=== PATIENT | female | born 1995 | race African-American/Black ===

== ENCOUNTER 2016-06-10 19:02 | Observation (INO) | payer OTHER ==
[2016-02-29 18:35] VITALS: BP 111/56
[~2016-06-10 19:02] MED LIST: HYDR-2666 PO; MEDR150D3 IM; METR500T PO
[2016-06-10] MEDS ORDERED: IV RINGERS,LACTATED 1000ML 1,000 ML IV SCH (19:36)
[2016-06-10 19:54] LABS: BILIRUBIN,URINE NEGATIVE (NEG); GLUCOSE,URINE NEGATIVE (NEG); NITRITE,URINE NEGATIVE (NEG); PH,URINE 6.5; PROTEIN,URINE >=300 mg/dL (NEG-TRACE)
[2016-06-10 20:03] LABS: BACTERIA,URINE FEW /HPF (0-FEW); RBC,URINE 0 /HPF (0-2); SQUAMOUS EPITHELIAL CELL,UR MANY /LPF
[2016-06-10 20:04] LABS: BARBITURATES NEG (NEG); BENZODIAZEPINES NEG (NEG); CANNABINOIDS POS (NEG); COCAINE NEG (NEG); METHADONE NEG (NEG); OPIATES NEG (NEG); PHENCYCLIDINE NEG (NEG)
[2016-06-10 20:05] LABS: ETHANOL, URINE NEG (NEG)
== END 2016-06-10 20:43 | disposition home or self-care (01) ==
LOC: 3 SO LND 19:02
PROVIDERS: ADMIT Specialist; ATTEND Specialist
DX: O26.893 Other specified pregnancy related conditions, third trimester (principal); R10.9 Unspecified abdominal pain; Y08.89XA Assault by other specified means, initial encounter; Y93.89 Activity, other specified; Y92.89 Other specified places as the place of occurrence of the external cause; Y99.8 Other external cause status; Z3A.21 21 weeks gestation of pregnancy
CPT/HCPCS: 81001; G0378; G0379; G0481

== ENCOUNTER 2016-06-10 20:41 | Emergency (ER) | payer OTHER ==
[2016-02-29 18:35] VITALS: BP 111/56
== END 2016-06-10 20:54 | disposition left against medical advice (07) ==
LOC: ER 20:41
DX: O26.892 Other specified pregnancy related conditions, second trimester (principal); M79.641 Pain in right hand; M54.5 Low back pain; Z3A.20 20 weeks gestation of pregnancy; Z53.21 Procedure and treatment not carried out due to patient leaving prior to being seen by health care provider

== ENCOUNTER 2016-10-05 21:34 | Observation (INO) | payer OTHER ==
[2016-02-29 18:35] VITALS: BP 111/56
[~2016-10-05 21:34] MED LIST changes: -HYDR-2666 PO; +HYDR-2758 PO
[2016-10-05] MEDS ORDERED: IV RINGERS,LACTATED 1000ML 1,000 ML IV SCH (21:36)
[2016-10-05 22:04] LABS: BILIRUBIN,URINE NEGATIVE (NEG); GLUCOSE,URINE NEGATIVE (NEG); NITRITE,URINE NEGATIVE (NEG); PROTEIN,URINE NEGATIVE (NEG-TRACE); UROBILINOGEN,URINE 0.2 mg/dL (0.2 mg/dL)
[2016-10-05 22:08] LABS: BARBITURATES NEG (NEG); BENZODIAZEPINES NEG (NEG); CANNABINOIDS POS (NEG); COCAINE NEG (NEG); METHADONE NEG (NEG); OPIATES NEG (NEG); PHENCYCLIDINE NEG (NEG)
[2016-10-05 22:43] LABS: RBC,URINE OCC /HPF (0-2)
[2016-10-05 22:44] LABS: BACTERIA,URINE FEW /HPF (0-FEW); SQUAMOUS EPITHELIAL CELL,UR FEW /LPF
== END 2016-10-05 23:04 | disposition home or self-care (01) ==
LOC: 3 SO LND 21:34
PROVIDERS: ADMIT Family Medicine; ATTEND Family Medicine
DX: O26.893 Other specified pregnancy related conditions, third trimester (principal); R10.30 Lower abdominal pain, unspecified; M54.9 Dorsalgia, unspecified; Z3A.37 37 weeks gestation of pregnancy
CPT/HCPCS: 81001; 87086; G0378; G0379; G0481

== ENCOUNTER 2016-10-13 19:47 | Inpatient (IN) | payer BC, OTHER ==
[~2016-10-13] VITALS: Ht 167.6 cm; Wt 73.0 kg
[2016-10-13] MEDS ORDERED: BUTORPHANOL 2 MG/ML VIAL. IV PRN (20:30)
[2016-10-13] MEDS ORDERED: fentaNYL PF VIAL 100 MCG/2 ML VIAL IV PRN (20:30)
[2016-10-13] MEDS ORDERED: TERBUTALINE 1 MG/ML VIAL. SQ PRN (20:30)
[2016-10-13] MEDS ORDERED: 0.9 % SODIUM CHLORIDE 10 ML DISP.SYRIN. IV PRN (20:30)
[2016-10-13] MEDS ORDERED: ONDANSETRON PF 4 MG/2 ML VIAL. IV PRN (20:30)
[2016-10-13] MEDS ORDERED: DINOPROSTONE 10 MG SUPP.VAG VG ONE (20:30)
[2016-10-13] MEDS ORDERED: CITRIC ACID/SODIUM CITRATE 30 ML SOLUTION. PO PRN (20:30)
[2016-10-13] MEDS ORDERED: OXYTOCIN 30 UNIT/500 ML PREMIX 500 ML IV PRN ×2 (20:30)
[2016-10-13] MEDS ORDERED: LIDOCAINE 1% PF 30 ML VIAL. INJ PRN (20:30)
[2016-10-13 20:47] LABS: HEMATOCRIT 28.6 % (36.0-47.0); HEMOGLOBIN 9.7 g/dL (12.0-15.5); RED BLOOD COUNT 3.29 x10^6/uL (3.50-5.40); RED CELL DISTRIBUTION WIDTH 12.8 % (11.5-14.5); WHITE BLOOD COUNT 4.5 x10^3/uL (4.0-11.0)
[2016-10-13] MEDS: IV RINGERS,LACTATED 1000ML 1,000 ML IV SCH (20:50)
[2016-10-13 20:54] LABS: BILIRUBIN,URINE NEGATIVE (NEG); GLUCOSE,URINE NEGATIVE (NEG); NITRITE,URINE NEGATIVE (NEG); PROTEIN,URINE 30 mg/dL (NEG-TRACE)
[2016-10-13 21:01] LABS: BARBITURATES NEG (NEG); BENZODIAZEPINES NEG (NEG); CANNABINOIDS POS (NEG); COCAINE NEG (NEG); METHADONE NEG (NEG); OPIATES NEG (NEG); PHENCYCLIDINE NEG (NEG)
[2016-10-13 21:03] LABS: RBC,URINE 0 /HPF (0-2)
[2016-10-13 21:04] LABS: BACTERIA,URINE FEW /HPF (0-FEW); SQUAMOUS EPITHELIAL CELL,UR FEW /LPF
[2016-10-14] MEDS ORDERED: ALPRAZolam 1 MG TABLET PO ONE (01:15)
[2016-10-14] MEDS: ACETAMINOPHEN 500 MG TABLET PO PRN ×3 (01:18→23:30)
[2016-10-14] MEDS: ZOLPIDEM 5 MG TABLET. PO PRN ×2 (01:18→23:30)
[2016-10-14] MEDS: IV RINGERS,LACTATED 1000ML 1,000 ML IV SCH (05:03)
[2016-10-14] MEDS ORDERED: ROPIVacaine 0.2% IN 0.9%NACL PF 40 MG/20 ML DISP.SYRIN. ONE ×2 (05:05→05:15)
[2016-10-14] MEDS ORDERED: L&D EPIDURAL CASSETTE 100 ML EP ONE (05:05)
[2016-10-14] MEDS ORDERED: OXYTOCIN in NORMAL SALINE PREMIX 30 UNIT/500 ML BAG. IV ONE (06:00)
[2016-10-14] MEDS ORDERED: fentaNYL PF VIAL 100 MCG/2 ML VIAL ONE (06:02)
[2016-10-14] MEDS ORDERED: L&D EPIDURAL CASSETTE 100 ML EP PRN (06:15)
[2016-10-14] MEDS ORDERED: NALOXONE 0.4 MG/ML VIAL. IV PRN (06:15)
[2016-10-14] MEDS ORDERED: ePHEDrine PF IN SALINE 50 MG/5 ML DISP.SYRIN IV PRN (06:15)
[2016-10-14] MEDS ORDERED: ROPIVacaine 0.2% PF 10 ML VIAL. EPI ONE (06:15)
[2016-10-14] MEDS ORDERED: ONDANSETRON PF 4 MG/2 ML VIAL. IV PRN (06:15)
[2016-10-14] MEDS ORDERED: fentaNYL PF VIAL 100 MCG/2 ML VIAL EPI ONE (06:15)
--- NOTE | 2016-10-14 07:12 | PDOC1 ---
OB - History Hx of Present Care: Good Care Ultrasounds: Abnormal US findings (IUGR suspected placental insufficiency) Obstetrical Complications: Growth Restriction Medical Complications: None Past Family/Social History * Past Medical, Surgical, Family and Obstetric Histories reviewed from chart. Blood Type: B+ Rubella: Immune RPR/VDRL: Negative GBS Status: Negative HBsAG: Negative OB - Chief Complaint & HPI Date of Admission: Date of Admission: Oct 13, 2016 at 19:47 Chief Complaint/History : 1 Para: 1 EDC: Oct 21, 2016 EGA: 39.1 Reason for admission: induction of labor Indication for induction: medical complication Admission Nurse Assessment Rev: No Problems: OB - Admission Exam Physical Exam Vitals: VS - Last 72 Hours, by Label Date Time Temp Pulse Resp B/P (MAP) Pulse Ox O2 Delivery O2 Flow Rate FiO2 10/14/16 06:09 22 Room Air HEENT: Normal Heart: Regular Rate Lungs: Clear Abdomen: Gravid Extremities: Normal Pulses, No tenderness or swelling Reflexes: Normal Cervical Dilatation: None Effacement: 0% Station: -2 Membranes: Intact Heart Rate: Normal Accelerations: Accelerations Present Decelerations: No decelerations Short Term Variability: Present [employer]ge Shop Supervisor Variability: Moderate Contractions on Admission: None A/P Pt is a 21yo [id number] at 39.0wga admitted for IOL 1)IOL- Cervadil 2)GBS negative 3)IUGR- 2/2 suspected placental insufficiency Problems: JEANETTE HALL MD Oct 14, 2016 07:12
--- NOTE | 2016-10-14 07:19 | PDOC ---
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
[2016-10-14] MEDS: IBUPROFEN 800 MG TABLET. PO PRN ×3 (09:54→23:30)
[2016-10-14 10:36] VITALS: BP 112/60
[2016-10-14 14:44] VITALS: BP 110/66
[2016-10-14 14:45] VITALS: BP 118/72
[2016-10-14] MEDS ORDERED: DIPHTH,PERTUSS(ACELL),TET TOX 0.5 ML DISP.SYRIN. VAX IM ONE (15:30)
[2016-10-14] MEDS ORDERED: BENZOCAINE 20% TOPICAL AEROSOL SPRAY 57GM CAN. TP PRN (17:00)
[2016-10-14 19:37] VITALS: BP 130/87
[2016-10-14 23:30] VITALS: BP 120/86
[2016-10-15 05:46] VITALS: BP 128/93
[2016-10-15 07:26] LABS: RPR REFLEX Non Reactive (Non Reactive)
--- NOTE | 2016-10-15 07:47 | PDOC ---
OB Progress Note Date of Service 10/15/16 Time of Evaluation 0730 Date: 10/14/16 Time: 0636 Notes Pt states that she is doing well. Bleeding is about the same as a period. She has tried but says infant has had some troubles latching on. OB VITAL SIGNS: Temperature (98.1), Blood Pressure (128/93), Pulse (75), O2 Sat (98% RA) Lab Laboratory Tests Test 10/13/16 20:00 10/13/16 20:20 Urine Collection Type Unknown Urine Color Yellow Urine Clarity Clear Urine pH 7.0 Urine Specific [place] 1.015 Urine Protein 30 mg/dL (NEG-TRACE) Urine Glucose (UA) Negative mg/dL (NEG) Urine Ketones (Stick) Negative mg/dL (NEG) Urine Blood Negative (NEG) Urine Nitrite Negative (NEG) Urine Bilirubin Negative (NEG) Urine Urobilinogen Dipstick 1.0 mg/dL (0.2 mg/dL) Urine Leukocyte Esterase Trace (NEG) Urine RBC 0 /HPF (0-2) Urine WBC 1-4 /HPF (0-4) Urine Squamous Epithelial Cells Few /LPF Urine Bacteria Few /HPF (0-FEW) Urine Mucus Mod /LPF Urine Opiates Screen Neg (NEG) Urine Methadone Screen Neg (NEG) Urine Barbiturates Neg (NEG) Urine Phencyclidine Screen Neg (NEG) Urine Amphetamine/Methamphetamine Neg (NEG) Urine Benzodiazepines Screen Neg (NEG) Urine Cocaine Screen Neg (NEG) Urine Cannabinoids Screen Pos (NEG) Urine Ethyl Alcohol Neg (NEG) White Blood Count 4.5 x10^3/uL (4.0-11.0) Red Blood Count 3.29 x10^6/uL (3.50-5.40) Hemoglobin 9.7 g/dL (12.0-15.5) Hematocrit 28.6 % (36.0-47.0) Mean Corpuscular Volume 87 fL (79-100) Mean Corpuscular Hemoglobin 30 pg (25-35) Mean Corpuscular Hemoglobin Concent 34 g/dL (31-37) Red Cell Distribution Width 12.8 % (11.5-14.5) Platelet Count 220 x10^3/uL (140-400) RPR Titer Additional Testing Non reactive (Non Reactive) Medications Current Medications Dinoprostone (Cervidil) 10 mg 1X ONCE VG Last administered on 7/30/17at 20:50 ; Start 10/13/16 at 20:30; Stop 10/14/16 at 15:23; Status DC Sodium Chloride (Normal Saline Flush) 3 ml QSHIFT PRN IV AFTER MEDS AND BLOOD DRAWS Last administered on 10/14/16 09:41; Start 10/13/16 at 20:30; Stop at 15:23; Status DC Ringer's Solution 1,000 ml @ 125 mls/hr Q8H IV Last administered on 10/14/16 05:03; Start 10/13/16 at 21:00; Stop 10/14/16 at 15:23; Status DC Butorphanol Tartrate (Stadol) 2 mg PRN Q1HR PRN IV Severe labor pain; Start at 20:30; Stop 10/14/16 at 15:23; Status DC Fentanyl Citrate (Fentanyl 2ml Vial) 100 mcg PRN Q20MIN PRN IV Labor pain; Start 10/13/16 at 20:30; Stop 10/14/16 at 15:23; Status DC Ondansetron HCl (Zofran) 4 mg PRN Q4HRS PRN IV NAUSEA/VOMITING Last administered on 10/14/16 02:19; Start 10/13/16 at 20:30; Stop 10/14/16 at 15:23 ; Status DC Citric Acid/ Sodium Citrate (Bicitra) 30 ml 1X PRN PRN PO DYSPEPSIA; Start at 20:30; Stop 10/14/16 at 15:23; Status DC Terbutaline Sulfate (Brethine) 0.25 mg 1X PRN PRN SQ SEE COMMENTS; Start at 20:30; Stop 10/14/16 at 15:23; Status DC Lidocaine HCl 30 ml 1X PRN PRN INJ SEE COMMENTS; Start 10/13/16 at 20:30; Stop 10/14/16 at 15:23; Status DC Oxytocin/Sodium Chloride 500 ml @ 0 mls/hr CONT PRN IV SEE I/O RECORD; Start at 20:30; Stop 10/14/16 at 15:23; Status DC Oxytocin/Sodium Chloride 500 ml @ 0 mls/hr CONT PRN PRN IV Post delivery bleeding; Start 10/13/16 at 20:30; Stop 10/14/16 at 15:23; Status DC Ibuprofen (Motrin) 800 mg PRN Q6HRS PRN PO PAIN Last administered on 10/14/16 23:30; Start 10/13/16 at 20:30 Alprazolam (Xanax) 1 mg 1X ONCE PO Last administered on 10/14/16 01:18; Start 10/14/16 at 01:15; Stop 10/14/16 at 15:23; Status DC Zolpidem Tartrate (Ambien) 5 mg PRN QHS PRN PO INSOMNIA, MAY REPEAT IN 1HR Last administered on 10/14/16 23:30; Start 10/14/16 at 00:30 Acetaminophen (Tylenol) 500 mg PRN Q6HRS PRN PO MILD PAIN / TEMP Last administered on 10/14/16 23:30; Start 10/14/16 at 00:30 Ropivacaine/ Fentanyl/NS 100 ml @ As Directed STK-MED ONCE EP ; Start 10/14/16 at 05:05; Stop 10/14/16 at 15:23; Status DC Ropivacaine 40 mg STK-MED ONCE .ROUTE ; Start 10/14/16 at 05:05; Stop 10/14/16 at 15:23; Status DC Fentanyl Citrate (Fentanyl 2ml Vial) 100 mcg STK-MED ONCE .ROUTE ; Start at 06:02; Stop 10/14/16 at 15:23; Status DC Ephedrine Sulfate 10 mg PRN Q2MIN PRN IV IF SBP<90; Start 10/14/16 at 06:15; Stop 10/14/16 at 15:23; Status DC Naloxone HCl (Narcan) 0.04 mg PRN Q1MIN PRN IV SEE COMMENTS; Start 10/14/16 at 06:15; Stop 10/14/16 at 15:23; Status DC Fentanyl Citrate (Fentanyl 2ml Vial) 100 mcg 1X ONCE EPI ; Start 10/14/16 at 06 :15; Stop 10/14/16 at 15:23; Status DC Ropivacaine/ Fentanyl/NS 100 ml @ 14 mls/hr CONT PRN EP PAIN Last administered on 10/14/16 06:09; Start 10/14/16 at 06:15; Stop 10/14/16 at 15:23 ; Status DC Ondansetron HCl (Zofran) 4 mg PRN Q6HRS PRN IV NAUSEA/VOMITING; Start 10/14/16 at 06:15; Stop 10/14/16 at 15:23; Status DC Ropivacaine (Naropin 0.2%) 20 ml 1X ONCE EPI ; Start 10/14/16 at 06:15; Stop at 15:23; Status DC Ropivacaine 40 mg STK-MED ONCE .ROUTE ; Start 10/14/16 at 05:15; Stop 10/14/16 at 15:23; Status DC Oxytocin/Sodium Chloride (Oxytocin Premix Infusion) 30 unit STK-MED ONCE IV ; Start 10/14/16 at 06:00; Stop 10/14/16 at 15:23; Status DC Diphtheria/ Tetanus/Acell Pertussis (Boostrix) 0.5 ml ONCE ONCE VAX IM ; Start 10/14/16 at 15:30; Stop 10/14/16 at 15:31; Status DC Benzocaine (Americaine) 1 spray PRN Q4HRS PRN TP PAIN Last administered on 10/14t 16:53; Start 10/14/16 at 17:00 Active Scripts Active Flagyl (Metronidazole) 500 Mg Tablet 1 Tab PO BID Hydrocodone-Apap 5-325 (Hydrocodone Bit/Acetaminophen) 1 Each Tablet 1 Tab PO PRN Q6HRS PRN Reported Depo-Provera (Medroxyprogesterone Acetate) 150 Mg/1 Ml Disp.syrin 1 Ml IM [id number] Exam GEN: NAD, AOx3 HEENT: MMM, EOMI, no scleral icterus/injection Cardiac: RRR, no M/R/G Lungs: CTAB Abd: soft, uterus is not firm Ext: no erythema/edema LE bilaterally Assessment Pt is a 21yo G1 now P1 s/p induced vaginal delivery s/p at 39.1wga 1)Induced vaginal delivery- 2/2 IUGR thought to be 2/2 placental insufficiency 2)GBS negative 3)/Bottlefeeding JEANETTE HALL MD Oct 15, 2016 07:47
[2016-10-15] MEDS: IBUPROFEN 800 MG TABLET. PO PRN ×2 (08:01→17:14)
[2016-10-15 11:05] VITALS: BP 126/91
[2016-10-15 17:15] VITALS: BP 131/89
[2016-10-15] MEDS: ACETAMINOPHEN 500 MG TABLET PO PRN (20:24)
[2016-10-15 20:57] VITALS: BP 121/82
[2016-10-16 05:24] VITALS: BP 115/68
[2016-10-16] MEDS: IBUPROFEN 800 MG TABLET. PO PRN (06:52)
[2016-10-16] MEDS ORDERED: IBUP800T19 PO (07:37)
--- NOTE | 2016-10-16 07:41 | PDOC3 ---
OB DISCHARGE SUMMARY DATE OF ADMISSION: 10/13/16 DATE OF DISCHARGE: 10/16/16 REASON FOR ADMISSION: Induction of labor PROCEDURES: Mgmt of OB Complications INTRAPARTUM PROCEDURES: Spontanous Vag Deliv DISCHARGE DIAGNOSIS: Term Delivered DISCHARGE INFORMATION: Activity (As tolerated), Diet (Regular), Medications ( Ibuprofen 800mg q6H prn), Instructions (Follow up with Dr. Hall in 4-6 weeks), Discharge to (Home) HOSPITAL COURSE Pt is a 21yo G1 now P1 s/p induced vaginal delivery s/p at 39.1wga 1)Induced vaginal delivery- 2/2 IUGR thought to be 2/2 placental insufficiency 2)GBS negative 3)/Bottlefeeding 4) control- pt is planning on starting the pill at her post visit JEANETTE HALL MD Oct 16, 2016 07:41
[2016-10-16 10:55] VITALS: BP 121/88
--- NOTE | 2016-10-17 15:34 | PATHOLOGY ---
PATHOLOGY REPORT * * * * * * * * FINAL DIAGNOSIS: 326 gram placenta of an estimated 39 weeks gestation with attached membranes and umbilical cord: - Small placenta. - Focal slight acute inflammation of umbilical cord vein. - Few subamniotic pigmented histiocytes consistent with meconium staining. - Peripheral retroplacental hematoma and placental infarct. COMMENT: There is no evidence of acute chorioamnionitis or villitis. (JPM:mgr; 10/16/2016) REPORT ELECTRONICALLY SIGNED BY: Moises De Santiago M.D. DATE/TIME: 10/17/2016 15:33 * * * * * * * * GROSS PATHOLOGY: Margins The specimen is received in formalin, labeled "Peoples", and consists of a placenta measuring 15 cm in diameter and 2.5 cm in thickness. The surface is bluegray with a paracentrally located umbilical cord measuring 34 cm in length which varies in diameter from 0.8-1.5 cm and has 3 vascular structures. Marginally inserted membranes are dull lauren-thorne. Following removal of umbilical cord and portion of the membranes the placenta weighs 326 g. Maternal surface appears intact and has a peripheral retroplacental hematoma measuring 2 1.5 0.6 cm which appears to compress the adjacent placental tissue. Section reveals red-brown placental tissue with a peripheral yellow-thorne area of old infarction underlying the retroplacental hematoma measuring 1.2 cm in greatest dimension and involving less than 5% of the placental volume. Some peripheral yellow-thorne fibrinous areas measuring up to about 2 cm and together involve less than 5% of the placental volume. Manager Servicing sections are submitted as follows: membranes and A1, 2 para central placental sections A2-A3, retroplacental hematoma and adjacent area of old infarction A4 and umbilical cord A5. (CW; 10/15/2016) INITIAL CPT CODE(S): A; 84485 Professional services performed by [facility] at [facility] [address] [place] [id number] Technical services performed by [facility] at [address] [place] [address], [address], [place] [address]. SPECIMEN(S) RECEIVED: A.Placenta CLINICAL HISTORY: IUGR, placental insufficiency, vaginal delivery, Gestational age 39 weeks, , EDC 10/16/16, 4lb 15oz female @ 0636 on 10/14/16, Apgars 8-8-9, heavy meconium PATIENT: CAMPBELL FIELDS /AGE: 12 1995 (Age: 21) PATIENT #: [id number] ALT CASE #: SPECIMEN COLLECTION DATE: 10/14/2016 SPECIMEN RECEIVED DATE: 10/14/2016 [facility] - [address] [place] [address] - PHONE: [phone] * * * END OF REPORT * * *
== END 2016-10-16 11:05 | disposition home or self-care (01) | DRG 775 ==
LOC: 3 SO LND 19:47 → 3 NORTH 10-14 09:45
PROVIDERS: ADMIT Family Medicine; ATTEND Family Medicine
PROC: 10E0XZZ Delivery of Products of Conception, External Approach (ICD-10-PCS; principal; 2016-10-14)
PROC: 0HQ9XZZ Repair Perineum Skin, External Approach (ICD-10-PCS; 2016-10-14)
PROC: 3E0S3BZ Introduction of Anesthetic Agent into Epidural Space, Percutaneous Approach (ICD-10-PCS; 2016-10-14)
PROC: 00HU33Z Insertion of Infusion Device into Spinal Canal, Percutaneous Approach (ICD-10-PCS; 2016-10-14)
DX: O77.0 Labor and delivery complicated by meconium in amniotic fluid (principal); Z37.0 Single live birth; Z3A.39 39 weeks gestation of pregnancy; O70.0 First degree perineal laceration during delivery; O36.5130 Maternal care for known or suspected placental insufficiency, third trimester, not applicable or unspecified; O36.5930 Maternal care for other known or suspected poor fetal growth, third trimester, not applicable or unspecified
CPT/HCPCS: 36415; 80307; 81001; 85027; 86593; 86850; 86900; 86901; 87086; 90715; C1887; J2405; J2590; J2795; J3010; J7120; G0479

== ENCOUNTER 2016-11-25 15:37 | Emergency (ER) | payer BC, OTHER ==
[~2016-11-25] VITALS: Ht 167.6 cm; Wt 69.4 kg
[~2016-11-25 15:37] MED LIST changes: +IBUP800T19 PO
[2016-11-25 15:50] VITALS: BP 128/81
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
[2016-11-25] MEDS ORDERED: TRAM-48 PO (16:23)
[2016-11-25] MEDS ORDERED: METH-37 PO (16:23)
[2016-11-25] MEDS ORDERED: METH4TAB2 PO (16:23)
== END 2016-11-25 16:30 | disposition home or self-care (01) ==
LOC: ER 15:37
DX: M54.5 Low back pain (principal); M54.6 Pain in thoracic spine; M54.2 Cervicalgia; M25.512 Pain in left shoulder; M25.511 Pain in right shoulder; V43.52XA Car driver injured in collision with other type car in traffic accident, initial encounter; Y93.I9 Activity, other involving external motion; Y92.410 Unspecified street and highway as the place of occurrence of the external cause; Y99.8 Other external cause status
CPT/HCPCS: 99283

== ENCOUNTER 2017-03-28 11:26 | Emergency (ER) | payer BC, OTHER ==
[2017-03-28 11:41] LABS: URINE HCG POC HCG POSITIVE (Negative)
[2017-03-28 11:50] LABS: BILIRUBIN,URINE NEGATIVE (NEG); CLARITY,URINE CLEAR; COLOR,URINE YELLOW; GLUCOSE,URINE NEGATIVE (NEG); NITRITE,URINE NEGATIVE (NEG); PH,URINE 7.5; PROTEIN,URINE NEGATIVE (NEG-TRACE); UROBILINOGEN,URINE 0.2 mg/dL (0.2 mg/dL)
[2017-03-28 12:04] LABS: SQUAMOUS EPITHELIAL CELL,UR FEW /LPF
[2017-03-28 12:05] LABS: BACTERIA,URINE 0 /HPF (0-FEW); RBC,URINE 0 /HPF (0-2)
[2017-03-28 12:24] LABS: ADD MAN DIFF? NO
[2017-03-28 12:29] LABS: BASO % 1 % (0-3); EOS % 1 % (0-3); HEMATOCRIT 34.2 % (36.0-47.0); HEMOGLOBIN 11.4 g/dL (12.0-15.5); LYMPH # 1.1 x10^3/uL (1.0-4.8); LYMPH % 35 % (24-48); MEAN CORPUSCULAR HEMOGLOBIN 29 pg (25-35); MEAN CORPUSCULAR HGB CONC 34 g/dL (31-37); MEAN CORPUSCULAR VOLUME 88 fL (79-100); MONO # 0.2 x10^3/uL (0.0-1.1); MONO % 6 % (0-9); NEUT # 1.8 x10^3uL (1.8-7.7); NEUT % 57 % (31-73); PLATELET COUNT 252 x10^3/uL (140-400); RED CELL DISTRIBUTION WIDTH 13.3 % (11.5-14.5); WHITE BLOOD COUNT 3.1 x10^3/uL (4.0-11.0)
[2017-03-28] MEDS: IV NORMAL SALINE 1000ML BAG 1,000 ML IV (12:35)
[2017-03-28 12:49] LABS: ANION GAP 11 (6-14); BLOOD UREA NITROGEN 8 mg/dL (7-20); BUN/CREATININE RATIO 11 (6-20); CALCIUM 8.9 mg/dL (8.5-10.1); CARBON DIOXIDE 25 mmol/L (21-32); CHLORIDE 103 mmol/L (98-107); CREATININE 0.7 mg/dL (0.6-1.0); GFR 126.6; GLUCOSE 93 mg/dL (70-99); POTASSIUM 3.3 mmol/L (3.5-5.1); SODIUM 139 mmol/L (136-145)
[2017-03-28 12:56] LABS: ALBUMIN 3.5 g/dL (3.4-5.0); ALBUMIN/GLOBULIN RATIO 0.7 (1.0-1.7); ALK PHOS 53 U/L (46-116); ALT (SGPT) 14 U/L (14-59); AST (SGOT) 17 U/L (15-37); MAGNESIUM 1.9 mg/dL (1.8-2.4); TOTAL BILIRUBIN 0.3 mg/dL (0.2-1.0); TOTAL PROTEIN 8.8 g/dL (6.4-8.2)
[2017-03-31 19:16] LABS: CHLAMYDIA PROBE Negative (Negative); GC PROBE Negative (Negative)
== END 2017-03-28 14:40 | disposition home or self-care (01) ==
LOC: ER 11:26
DX: O20.0 Threatened abortion (principal); Z3A.01 Less than 8 weeks gestation of pregnancy
CPT/HCPCS: 36415; 76801; 80053; 81001; 81025; 83735; 84702; 85025; 86850; 86900; 86901; 87491; 87591; 96360; 99285-25; J7030; Q0111

== ENCOUNTER → 2017-04-02 | Outpatient (CLI) | payer OTHER | END | disposition home or self-care (01) | LOC: KCIC US 10:57 | DX: O34.81 Maternal care for other abnormalities of pelvic organs, first trimester (principal); N83.11 Corpus luteum cyst of right ovary; Z3A.01 Less than 8 weeks gestation of pregnancy | CPT/HCPCS: 76801; 76817 ==

== ENCOUNTER → 2017-04-22 | Outpatient (CLI) | payer OTHER | END | disposition home or self-care (01) | LOC: KCIC US 10:09 | DX: O46.8X1 Other antepartum hemorrhage, first trimester (principal); N83.201 Unspecified ovarian cyst, right side; Z3A.10 10 weeks gestation of pregnancy | CPT/HCPCS: 76801; 76817 ==

== ENCOUNTER 2017-06-24 19:15 | Emergency (ER) | payer BC, OTHER ==
[2017-06-24 21:08] LABS: URINE HCG POC HCG POSITIVE (Negative)
[2017-06-24] MEDS: cefTRIAXone IV Push 1 GM VIAL. IVP (22:00)
[2017-06-24] MEDS: IV NORMAL SALINE 1000ML BAG 1,000 ML IV (22:20)
== END 2017-06-24 23:35 | disposition home or self-care (01) ==
LOC: ER 19:15
DX: O91.219 Nonpurulent mastitis associated with pregnancy, unspecified trimester (principal); Z3A.00 Weeks of gestation of pregnancy not specified
CPT/HCPCS: 81025; 96374; 99284-25; J0696; J7030

== ENCOUNTER → 2017-06-26 | Outpatient (CLI) | payer BC, OTHER | END | disposition home or self-care (01) | LOC: US 11:20 | DX: O26.892 Other specified pregnancy related conditions, second trimester (principal); N63.20 Unspecified lump in the left breast, unspecified quadrant; N64.4 Mastodynia; Z3A.20 20 weeks gestation of pregnancy | CPT/HCPCS: 76641 ==

== ENCOUNTER → 2017-06-30 | Outpatient (CLI) | payer BC, OTHER | END | disposition home or self-care (01) | LOC: US 13:33 | DX: N61.1 Abscess of the breast and nipple (principal) | CPT/HCPCS: 76942; 87071; 87075; 87205 ==

== ENCOUNTER → 2017-07-02 | Outpatient (CLI) | payer BC, OTHER | END | disposition home or self-care (01) | LOC: US 14:37 | DX: Z34.92 Encounter for supervision of normal pregnancy, unspecified, second trimester (principal); Z3A.20 20 weeks gestation of pregnancy | CPT/HCPCS: 76805 ==

== ENCOUNTER → 2017-07-25 | Outpatient (CLI) | payer BC, OTHER | END | disposition home or self-care (01) | LOC: NM 13:35 | DX: R07.89 Other chest pain (principal) | CPT/HCPCS: 71046; 78582; 96374; A9540; A9558 ==

== ENCOUNTER 2017-08-18 17:13 | Emergency (ER) | payer OTHER, BC ==
[2017-08-18 17:49] LABS: BILIRUBIN,URINE NEGATIVE (NEG); CLARITY,URINE CLEAR; COLOR,URINE YELLOW; GLUCOSE,URINE NEGATIVE (NEG); NITRITE,URINE NEGATIVE (NEG); PROTEIN,URINE NEGATIVE (NEG-TRACE)
[2017-08-18 18:02] LABS: BACTERIA,URINE 0 /HPF (0-FEW); RBC,URINE 0 /HPF (0-2); SQUAMOUS EPITHELIAL CELL,UR FEW /LPF; WBC,URINE OCC /HPF (0-4)
== END 2017-08-18 18:32 | disposition home or self-care (01) ==
LOC: ER 17:13
DX: O26.893 Other specified pregnancy related conditions, third trimester (principal); R10.9 Unspecified abdominal pain; Z3A.27 27 weeks gestation of pregnancy
CPT/HCPCS: 81001; 99283

== ENCOUNTER 2017-09-07 13:59 | Observation (INO) | payer OTHER ==
[2017-09-07 14:28] LABS: BILIRUBIN,URINE NEGATIVE (NEG); CLARITY,URINE CLEAR; COLOR,URINE YELLOW; GLUCOSE,URINE NEGATIVE (NEG); NITRITE,URINE NEGATIVE (NEG); PH,URINE 6.5; PROTEIN,URINE NEGATIVE (NEG-TRACE)
[2017-09-07 14:44] LABS: BACTERIA,URINE 0 /HPF (0-FEW); RBC,URINE 0 /HPF (0-2); WBC,URINE OCC /HPF (0-4)
[2017-09-07 14:45] LABS: SQUAMOUS EPITHELIAL CELL,UR FEW /LPF
[2017-09-07] MEDS: hydrOXYzine PAMOATE 25 MG CAPSULE PO (15:48)
[2017-09-07] MEDS: IV RINGERS,LACTATED 1000ML 1,000 ML IV (15:49)
== END 2017-09-07 17:35 | disposition home or self-care (01) ==
LOC: 3 SO LND 13:59
DX: O26.893 Other specified pregnancy related conditions, third trimester (principal); R10.30 Lower abdominal pain, unspecified; M54.9 Dorsalgia, unspecified; Z3A.30 30 weeks gestation of pregnancy
CPT/HCPCS: 81001; 87491; 87591; 96360; 96361; G0378; G0379; J7120; Q0177

== ENCOUNTER 2017-09-19 14:34 | Observation (INO) | payer BC, OTHER ==
[2017-09-19] MEDS ORDERED: IV RINGERS,LACTATED 1000ML 1,000 ML IV (15:39)
[2017-09-19 16:01] LABS: BILIRUBIN,URINE NEGATIVE (NEG); CLARITY,URINE CLEAR; COLOR,URINE YELLOW; GLUCOSE,URINE NEGATIVE (NEG); NITRITE,URINE NEGATIVE (NEG); PROTEIN,URINE NEGATIVE (NEG-TRACE)
== END 2017-09-19 17:09 | disposition home or self-care (01) ==
LOC: 3 SO LND 14:34
DX: O46.93 Antepartum hemorrhage, unspecified, third trimester (principal); Z3A.32 32 weeks gestation of pregnancy
CPT/HCPCS: 81003; G0378; G0379

== ENCOUNTER 2017-10-17 16:57 | Observation (INO) | payer BC, OTHER ==
[2017-10-17] MEDS ORDERED: IV RINGERS,LACTATED 1000ML 1,000 ML IV (17:19)
[2017-10-17 17:29] LABS: BILIRUBIN,URINE NEGATIVE (NEG); CLARITY,URINE CLOUDY; COLOR,URINE YELLOW; GLUCOSE,URINE NEGATIVE (NEG); NITRITE,URINE NEGATIVE (NEG); PH,URINE 6.5; PROTEIN,URINE 30 mg/dL (NEG-TRACE); UROBILINOGEN,URINE 0.2 mg/dL (0.2 mg/dL)
[2017-10-17] MEDS ORDERED: MAG HYDROX/ALUMINUM HYD/SIMETH 30 ML ORAL.SUSP PO (17:30)
[2017-10-17] MEDS ORDERED: ACETAMINOPHEN 325 MG TABLET. PO (17:30)
[2017-10-17] MEDS ORDERED: ONDANSETRON PF 4 MG/2 ML VIAL. IV (17:30)
[2017-10-17 17:33] LABS: BACTERIA,URINE 0 /HPF (0-FEW); RBC,URINE 0 /HPF (0-2); SQUAMOUS EPITHELIAL CELL,UR FEW /LPF; WBC,URINE OCC /HPF (0-4)
[2017-10-17 18:16] LABS: ADD MAN DIFF? NO
[2017-10-17 18:20] LABS: BASO % 0 % (0-3); EOS % 1 % (0-3); HEMATOCRIT 30.1 % (36.0-47.0); HEMOGLOBIN 10.3 g/dL (12.0-15.5); LYMPH # 1.3 x10^3/uL (1.0-4.8); LYMPH % 26 % (24-48); MEAN CORPUSCULAR HEMOGLOBIN 29 pg (25-35); MEAN CORPUSCULAR HGB CONC 34 g/dL (31-37); MEAN CORPUSCULAR VOLUME 86 fL (79-100); MONO # 0.5 x10^3/uL (0.0-1.1); MONO % 10 % (0-9); NEUT # 3.2 x10^3uL (1.8-7.7); NEUT % 63 % (31-73); PLATELET COUNT 214 x10^3/uL (140-400); RED BLOOD COUNT 3.51 x10^6/uL (3.50-5.40); RED CELL DISTRIBUTION WIDTH 13.8 % (11.5-14.5)
[2017-10-17 18:29] LABS: ANION GAP 7 (6-14); BLOOD UREA NITROGEN 10 mg/dL (7-20); BUN/CREATININE RATIO 11 (6-20); CALCIUM 8.2 mg/dL (8.5-10.1); CARBON DIOXIDE 26 mmol/L (21-32); CHLORIDE 104 mmol/L (98-107); CREATININE 0.9 mg/dL (0.6-1.0); GFR 94.7; GLUCOSE 85 mg/dL (70-99); POTASSIUM 3.3 mmol/L (3.5-5.1); SODIUM 137 mmol/L (136-145)
[2017-10-17 18:35] LABS: ALBUMIN 2.4 g/dL (3.4-5.0); ALBUMIN/GLOBULIN RATIO 0.5 (1.0-1.7); ALK PHOS 167 U/L (46-116); ALT (SGPT) 13 U/L (14-59); AST (SGOT) 16 U/L (15-37); TOTAL BILIRUBIN 0.2 mg/dL (0.2-1.0); TOTAL PROTEIN 7.4 g/dL (6.4-8.2); URIC ACID 5.3 mg/dL (2.6-6.0)
[2017-10-20 16:17] LABS: TOTAL PROTEIN CREATININE RATIO 238 mg/g creat (0-200); UR CREATININE RD 342.3 mg/dL (Not Estab.); UR PROTEIN RD 81.4 mg/dL (Not Estab.)
== END 2017-10-17 20:06 | disposition home or self-care (01) ==
LOC: 3 SO LND 16:57
DX: O26.893 Other specified pregnancy related conditions, third trimester (principal); R10.9 Unspecified abdominal pain; R10.2 Pelvic and perineal pain; Z3A.36 36 weeks gestation of pregnancy
CPT/HCPCS: 36415; 80053; 81001; 82570; 84156; 84550; 85025; G0378; G0379

== ENCOUNTER 2017-10-23 01:36 | Inpatient (IN) | payer BC, OTHER ==
[2017-10-23 02:00] LABS: BILIRUBIN,URINE NEGATIVE (NEG); CLARITY,URINE CLEAR; COLOR,URINE YELLOW; GLUCOSE,URINE NEGATIVE (NEG); NITRITE,URINE NEGATIVE (NEG); PROTEIN,URINE 30 mg/dL (NEG-TRACE); UROBILINOGEN,URINE 0.2 mg/dL (0.2 mg/dL)
[2017-10-23 02:35] LABS: AMORPHOUS SEDIMENT,UR PRESENT /HPF; BACTERIA,URINE FEW /HPF (0-FEW); RBC,URINE RARE /HPF (0-2); SQUAMOUS EPITHELIAL CELL,UR MANY /LPF
[2017-10-23] MEDS: ACETAMINOPHEN 500 MG TABLET PO ×2 (03:11→04:29)
[2017-10-23 03:50] LABS: ALBUMIN 2.2 g/dL (3.4-5.0); ALBUMIN/GLOBULIN RATIO 0.4 (1.0-1.7); ALK PHOS 169 U/L (46-116); ALT (SGPT) 13 U/L (14-59); ANION GAP 7 (6-14); AST (SGOT) 17 U/L (15-37); BLOOD UREA NITROGEN 10 mg/dL (7-20); BUN/CREATININE RATIO 13 (6-20); CALCIUM 8.4 mg/dL (8.5-10.1); CARBON DIOXIDE 25 mmol/L (21-32); CHLORIDE 104 mmol/L (98-107); CREATININE 0.8 mg/dL (0.6-1.0); GFR 108.5; GLUCOSE 86 mg/dL (70-99); POTASSIUM 3.2 mmol/L (3.5-5.1); SODIUM 136 mmol/L (136-145); TOTAL BILIRUBIN 0.1 mg/dL (0.2-1.0); TOTAL PROTEIN 7.5 g/dL (6.4-8.2); URIC ACID 4.5 mg/dL (2.6-6.0)
[2017-10-23] MEDS: IV RINGERS,LACTATED 1000ML 1,000 ML IV ×2 (08:31→22:00)
[2017-10-23] MEDS: LABETALOL 20 MG/4 ML DISP.SYRIN. IVP ×3 (08:35→09:28)
[2017-10-23] MEDS ORDERED: 0.9 % SODIUM CHLORIDE 10 ML DISP.SYRIN. IV (09:15)
[2017-10-23] MEDS ORDERED: OXYTOCIN 30 UNIT/500 ML PREMIX 500 ML IV ×2 (09:15)
[2017-10-23] MEDS ORDERED: LIDOCAINE 1% PF 30 ML VIAL. INJ (09:15)
[2017-10-23] MEDS ORDERED: MAG HYDROX/ALUMINUM HYD/SIMETH 30 ML ORAL.SUSP PO (09:15)
[2017-10-23] MEDS ORDERED: CITRIC ACID/SODIUM CITRATE 30 ML SOLUTION. PO (09:15)
[2017-10-23] MEDS ORDERED: TERBUTALINE 1 MG/ML VIAL. SQ (09:15)
[2017-10-23] MEDS ORDERED: hydrALAZINE 20 MG/ML VIAL. IVP (09:45)
[2017-10-23] MEDS: MAGNESIUM SULFATE 4GM 100 ML IV (10:06)
[2017-10-23 10:18] LABS: ADD MAN DIFF? NO
[2017-10-23 10:26] LABS: BASO % 0 % (0-3); EOS % 1 % (0-3); HEMATOCRIT 31.2 % (36.0-47.0); HEMOGLOBIN 10.6 g/dL (12.0-15.5); LYMPH # 1.4 x10^3/uL (1.0-4.8); LYMPH % 29 % (24-48); MEAN CORPUSCULAR HEMOGLOBIN 29 pg (25-35); MEAN CORPUSCULAR HGB CONC 34 g/dL (31-37); MEAN CORPUSCULAR VOLUME 86 fL (79-100); MONO # 0.4 x10^3/uL (0.0-1.1); MONO % 9 % (0-9); NEUT # 2.9 x10^3uL (1.8-7.7); NEUT % 61 % (31-73); PLATELET COUNT 194 x10^3/uL (140-400); RED BLOOD COUNT 3.61 x10^6/uL (3.50-5.40); WHITE BLOOD COUNT 4.7 x10^3/uL (4.0-11.0)
[2017-10-23] MEDS ORDERED: MAGNESIUM SULFATE 2GM 50 ML IV (10:30)
[2017-10-23] MEDS: MAGNESIUM SULFATE 20GM 500 ML IV ×2 (10:31→21:47)
[2017-10-23] MEDS: fentaNYL PF VIAL 100 MCG/2 ML VIAL IV (12:11)
[2017-10-23] MEDS: AMPICILLIN SODIUM 2 GM in IV NORMAL SALINE 100ML 100 ML IV ×2 (12:58→16:11)
[2017-10-23] MEDS: BUTORPHANOL 2 MG/ML VIAL. IV (13:28)
[2017-10-23] MEDS ORDERED: IV RINGERS,LACTATED 1000ML 1,000 ML IV (13:29)
[2017-10-23] MEDS ORDERED: BUPIVACAINE MPF 0.25% 10 ML VIAL. EPI (13:30)
[2017-10-23] MEDS ORDERED: NALOXONE 0.4 MG/ML VIAL. IV (13:30)
[2017-10-23] MEDS ORDERED: fentaNYL PF VIAL 100 MCG/2 ML VIAL EPI (13:30)
[2017-10-23] MEDS: ROPIVacaine 0.2% IN 0.9%NACL PF 40 MG/20 ML DISP.SYRIN. EPI (13:54)
[2017-10-23] MEDS: L&D EPIDURAL SYRINGE 50 ML EP (13:56)
[2017-10-23] MEDS ORDERED: HEPATITIS B VAX PF for NSY/VFC 10 MCG/0.5 ML SYRINGE. VAX IM (17:15)
[2017-10-23] MEDS ORDERED: PHYTONADIONE NEONATAL 1 MG/0.5 ML SYRINGE. IM (17:15)
[2017-10-23] MEDS ORDERED: ERYTHROMYCIN 0.5% OPHTH OINTMENT 1GM TUBE. OU (17:15)
[2017-10-23] MEDS: IBUPROFEN 800 MG TABLET. PO (18:20)
[2017-10-23] MEDS: oxyCODONE/APAP 5/325 1 TAB TABLET PO (18:20)
[2017-10-23] MEDS: ONDANSETRON PF 4 MG/2 ML VIAL. IV (21:24)
[2017-10-23] MEDS: ZOLPIDEM 5 MG TABLET. PO (23:46)
[2017-10-24 03:49] LABS: ADD MAN DIFF? NO
[2017-10-24 03:53] LABS: BASO % 0 % (0-3); EOS # 0.1 x10^3/uL (0.0-0.7); EOS % 1 % (0-3); HEMATOCRIT 29.2 % (36.0-47.0); HEMOGLOBIN 9.9 g/dL (12.0-15.5); LYMPH # 1.1 x10^3/uL (1.0-4.8); LYMPH % 15 % (24-48); MEAN CORPUSCULAR HEMOGLOBIN 30 pg (25-35); MEAN CORPUSCULAR HGB CONC 34 g/dL (31-37); MEAN CORPUSCULAR VOLUME 87 fL (79-100); MONO # 0.4 x10^3/uL (0.0-1.1); MONO % 6 % (0-9); NEUT # 5.7 x10^3uL (1.8-7.7); NEUT % 78 % (31-73); PLATELET COUNT 158 x10^3/uL (140-400); RED BLOOD COUNT 3.35 x10^6/uL (3.50-5.40); RED CELL DISTRIBUTION WIDTH 13.7 % (11.5-14.5); WHITE BLOOD COUNT 7.4 x10^3/uL (4.0-11.0)
[2017-10-24 04:06] LABS: MAGNESIUM 6.2 mg/dL (1.8-2.4)
[2017-10-24 04:16] LABS: ALBUMIN 2.1 g/dL (3.4-5.0); ALBUMIN/GLOBULIN RATIO 0.4 (1.0-1.7); ALK PHOS 154 U/L (46-116); ALT (SGPT) 12 U/L (14-59); ANION GAP 8 (6-14); AST (SGOT) 16 U/L (15-37); BLOOD UREA NITROGEN 6 mg/dL (7-20); BUN/CREATININE RATIO 9 (6-20); CARBON DIOXIDE 27 mmol/L (21-32); CHLORIDE 104 mmol/L (98-107); CREATININE 0.7 mg/dL (0.6-1.0); GFR 126.6; GLUCOSE 80 mg/dL (70-99); POTASSIUM 3.2 mmol/L (3.5-5.1); SODIUM 139 mmol/L (136-145); TOTAL BILIRUBIN 0.1 mg/dL (0.2-1.0); TOTAL PROTEIN 6.8 g/dL (6.4-8.2)
[2017-10-24] MEDS: oxyCODONE/APAP 5/325 1 TAB TABLET PO ×2 (06:22→12:17)
[2017-10-24] MEDS: ACETAMINOPHEN 325 MG TABLET. PO (06:22)
[2017-10-24] MEDS: IBUPROFEN 800 MG TABLET. PO ×2 (08:19→17:34)
[2017-10-24] MEDS: LABETALOL 20 MG/4 ML DISP.SYRIN. IVP (08:54)
[2017-10-24] MEDS: MAGNESIUM SULFATE 20GM 500 ML IV (08:55)
[2017-10-24] MEDS: POTASSIUM CHLORIDE 20 MEQ TABLET.ER. PO ×2 (17:15→17:35)
[2017-10-24] MEDS: ZOLPIDEM 5 MG TABLET. PO (22:00)
[2017-10-25] MEDS: IBUPROFEN 800 MG TABLET. PO ×3 (06:22→22:15)
[2017-10-25] MEDS: oxyCODONE/APAP 5/325 1 TAB TABLET PO ×2 (06:22→22:15)
[2017-10-25 07:33] LABS: STREP B BY PCR SEE SEPARATE REPORT
[2017-10-25] MEDS: LABETALOL HCL 100 MG TABLET. PO ×2 (12:30→22:15)
[2017-10-25] MEDS: MAGNESIUM HYDROXIDE 2,400 MG/30 ML ORAL.SUSP. PO (22:28)
[2017-10-26] MEDS: LABETALOL HCL 100 MG TABLET. PO (08:08)
== END 2017-10-26 17:11 | disposition home or self-care (01) | DRG 774 ==
LOC: 3 SO LND 01:36 → 3 NORTH 22:00
PROC: 10E0XZZ Delivery of Products of Conception, External Approach (ICD-10-PCS; principal; 2017-10-23)
PROC: 00HU33Z Insertion of Infusion Device into Spinal Canal, Percutaneous Approach (ICD-10-PCS; 2017-10-23)
PROC: 3E0R3BZ Introduction of Anesthetic Agent into Spinal Canal, Percutaneous Approach (ICD-10-PCS; 2017-10-23)
DX: O14.93 Unspecified pre-eclampsia, third trimester (principal); O69.81X0 Labor and delivery complicated by cord around neck, without compression, not applicable or unspecified; Z37.0 Single live birth; Z3A.36 36 weeks gestation of pregnancy
CPT/HCPCS: 36415; 80053; 81001; 83735; 84550; 85025; 86592; 86850; 86900; 86901; 87653; G0378; G0379; J0290; J2405; J2795; J3010; J3475; J3490; J7120

== ENCOUNTER → 2018-01-09 | Outpatient (CLI) | payer BC, OTHER ==
[2017-10-26 16:20] VITALS: BP 139/99
[~2018-01-09] MED LIST changes: +CEPH-264 PO; +METH-37 PO; +METH4TAB2 PO; +TRAM-48 PO
--- NOTE | 2018-01-09 16:16 | RAD ---
MRI of the brain without contrast 01/09/2018 Clinical History: Constant migraine headaches for 3 months. Visual changes. Technique: Unenhanced T1-weighted sagittal and axial, T2-weighted axial and coronal and FLAIR, gradient echo and diffusion-weighted axial images of the brain were obtained. Findings: No previous studies are available for comparison. The ventricles and sulci are within normal limits in size and configuration. No area of significant abnormal signal intensity is seen involving brain parenchyma. No extra-axial fluid collection is seen. There is no MRI evidence of acute ischemia/infarction. The paranasal sinuses are essentially clear. Normal flow voids are seen within the major vascular structures surrounding the brain parenchyma. Impression: Negative study. Electronically signed by: Vinayak Wen MD (01/09/2018 4:13 PM) [id number]
== END | disposition home or self-care (01) ==
LOC: MRI 14:54
PROVIDERS: ATTEND Family Medicine
DX: G43.909 Migraine, unspecified, not intractable, without status migrainosus (principal)
CPT/HCPCS: 70551

== ENCOUNTER 2018-02-10 13:05 | Emergency (ER) | payer BC, OTHER ==
[~2018-02-10] VITALS: Ht 167.6 cm; Wt 74.8 kg
[~2018-02-10 13:05] MED LIST changes: -HYDR-2758 PO; +HYDR-2761 PO
[2018-02-10 13:54] LABS: BASO % 1 % (0-3); EOS # 0.1 x10^3/uL (0.0-0.7); EOS % 2 % (0-3); HEMATOCRIT 35.1 % (36.0-47.0); HEMOGLOBIN 12.1 g/dL (12.0-15.5); LYMPH # 1.2 x10^3/uL (1.0-4.8); LYMPH % 31 % (24-48); MEAN CORPUSCULAR HEMOGLOBIN 29 pg (25-35); MEAN CORPUSCULAR HGB CONC 34 g/dL (31-37); MEAN CORPUSCULAR VOLUME 84 fL (79-100); MONO # 0.2 x10^3/uL (0.0-1.1); MONO % 6 % (0-9); NEUT # 2.3 x10^3uL (1.8-7.7); NEUT % 60 % (31-73); PLATELET COUNT 252 x10^3/uL (140-400); RED BLOOD COUNT 4.18 x10^6/uL (3.50-5.40); RED CELL DISTRIBUTION WIDTH 13.5 % (11.5-14.5); WHITE BLOOD COUNT 3.9 x10^3/uL (4.0-11.0)
--- NOTE | 2018-02-10 13:57 | RAD ---
CHEST PA LATERAL History: LEFT SIDED CHEST PAIN Comparison: Two-view chest, July 25, 2017. Findings: The cardiomediastinal silhouette is normal. Pulmonary vasculature is normal. The lungs are clear. No pleural effusion or pneumothorax is seen. There is no acute bone abnormality. IMPRESSION: No acute cardiopulmonary process. Electronically signed by: Jerome Grimaldo MD (02/10/2018 1:53 PM) [id number]
--- NOTE | 2018-02-10 14:05 | EKG ---
[facility] [address] [place] [address] Test Date: 2018-02-10 Test Time: 13:17:04 Pat Name: CAMPBELL FIELDS Department: Room: Gender: F [employer] Registrar: : 1995 Requested By: SHERI HERNÁNDEZ Order Number: [id number] Reading MD: Jean Paul Wise Measurements Intervals [place] Rate: 90 P: 0 [place]: 152 QRS: 31 QRSD: 76 T: -20 QT: 340 QTc: 420 Interpretive Statements SINUS RHYTHM MILD T ABNORMALITY IN ANTERIOR LEADS Electronically Signed On 02-11-2018 9:43:31 TECHNOLOGY ASSISTANT by Jean Paul Wise
[2018-02-10 14:21] LABS: CALCIUM 8.7 mg/dL (8.5-10.1); CREATININE 0.9 mg/dL (0.6-1.0); GFR 94.7; POTASSIUM 3.5 mmol/L (3.5-5.1)
[2018-02-10 14:27] LABS: ALBUMIN 3.6 g/dL (3.4-5.0); ALBUMIN/GLOBULIN RATIO 0.6 (1.0-1.7); C-REACTIVE PROTEIN 1.1 mg/L (0-3.3); TOTAL BILIRUBIN 0.2 mg/dL (0.2-1.0); TOTAL PROTEIN 9.2 g/dL (6.4-8.2)
[2018-02-10 14:30] VITALS: BP 121/86
== END 2018-02-10 15:15 | disposition home or self-care (01) ==
LOC: ER 13:05
DX: R07.89 Other chest pain (principal)
CPT/HCPCS: 36415; 71046; 80053; 81025; 82553; 83880; 84484; 85025; 85379; 86140; 93005; 99284

== ENCOUNTER → 2018-02-18 | Outpatient (CLI) | payer BC, OTHER ==
[2018-02-10 14:30] VITALS: BP 121/86
--- NOTE | 2018-02-18 15:31 | RAD ---
DATE: 02/18/2018 EXAM: DIGITAL DIAGNOSTIC BILATERAL, BREAST LEFT HISTORY: Left breast lump and swelling for one week, possible abscess COMPARISON: None available This study was interpreted with the benefit of Computerized Aided Detection (CAD). Breast Density: HETERO The breast parenchyma is heterogenously dense, which could reduce sensitivity of mammography. Breast parenchyma level C. FINDINGS: There is considerable skin thickening in the anterior aspect of the left breast in the areolar region. The underlying fibroglandular tissues are more dense on the left than the right. No discrete mass is seen. No suspicious microcalcifications are evident. Left breast ultrasound, 02/18/2018: There is a superficial heterogeneous, predominantly hypoechoic process present in the retroareolar region centered just lateral to the midline. There is overlying skin thickening. The margins of this process are irregular. There is considerable intraluminal vascularity. This is not a simple fluid collection. It is discoid in shape measuring 4.9 x 1.7 x 4.5 cm. A similar process was present in this region on the 06/26/2017 exam. The process was aspirated at that time with only small amount of pus like material aspirated. IMPRESSION: Ongoing or recurrent complicated mass with internal vascularity in the left retroareolar region centered just lateral to the midline. This may represent granulation tissue due to chronic infection, although malignancy cannot be excluded. Correlation with lab results from the previous aspiration of 06/26/2017 if available would be helpful. Ultrasound-guided biopsy should be considered for further evaluation. Note: The findings were discussed with the patient at time of the exam and she understands our recommendation for biopsy. She will follow up with the ordering provider. BI-RADS CATEGORY: 4 SUSPICIOUS ABNORMALITY- BIOPSY SHOULD BE CONSIDERED RECOMMENDED FOLLOW-UP: BIO BIOPSY RECOMMENDED PQRS compliance statement: Patient information was entered into a reminder system with a target due date for the next mammogram. Mammography is a sensitive method for finding small breast cancers, but it does not detect them all and is not a substitute for careful clinical examination. A negative mammogram does not negate a clinically suspicious finding and should not result in delay in biopsying a clinically suspicious abnormality. "Our facility is accredited by the [employer] Mammography Program."
== END | disposition home or self-care (01) ==
LOC: US 13:43
PROVIDERS: ATTEND Family Medicine
DX: N61.1 Abscess of the breast and nipple (principal)
CPT/HCPCS: 76641; 77066

== ENCOUNTER → 2018-03-24 | Outpatient (CLI) | payer OTHER, BC ==
--- NOTE | 2018-03-26 09:13 | PATHOLOGY ---
[facility] Accession Number: [id number] . 01 Material submitted: . LEFT BREAST MASS . 01 Clinical history: . Left breast mass . 02 Diagnosis: Skin and breast tissue, left breast mass needle biopsy: - Chronic mastitis with focal mild duct ectasia. (JPM:brea; 03/25/2018) MBR/03/25/2018 . 02 Comment: There is no evidence of malignancy. (JPM:brea; 03/25/2018) . 02 Electronically signed: . Moises De Santiago MD, Pathologist NPI- [id number] . 01 Gross description: . Received in formalin labeled "Colleen Duke, left breast mass," are multiple needle cores of yellow-lauren fibrofatty tissue measuring 2.1 x 0.7 x 0.2 cm in aggregate dimensions. The tissue submitted in its entirety in cassette A1 through A3. The cold ischemic time is 7 minutes. The total formalin fixation time is 14 hours and 20 minutes. (TSD; 03/24/2018) TOB/TOB . 02 Pathologist provided ICD-10: N60.12, N60.42 . 02 CPT . 321396 Specimen Comment: A courtesy copy of this report has been sent to Specimen Comment: [phone], , . Specimen Comment: Report sent to , DR HASTINGS / DR HALL Specimen Comment: A duplicate report has been generated due to demographic updates. Performed at: 01 [facility] [address], [place], [place] [id number] MD Ruben Guzmán MD Phone: [phone] Performed at: 02 [facility] [address] [place], [place] [address] MD Moises De Santiago MD Phone: [phone]
--- NOTE | 2018-03-26 14:52 | RAD ---
Ultrasound-guided left breast biopsy, 03/24/2018: History: Retroareolar mass A previous ultrasound exam demonstrated an irregular retroareolar mass. Under local anesthesia, aseptic conditions and sonographic guidance 4 separate 14-gauge core samples were obtained from different portions of this process. A biopsy marker was then deposited the biopsy site. Hemostasis was then obtained. Two-view postprocedural digital mammograms were then obtained to document position of the biopsy marker. These mammogram show that the overall retroareolar density appears to have regressed slightly since 02/18/2018. Mildly prominent left axillary lymph nodes are noted on the current images, the largest of which measures 2 cm. The patient tolerated the procedure well and left the department in good condition. The subsequent pathology report indicated the presence of chronic mastitis. This is considered to be concordant finding.
== END | disposition home or self-care (01) ==
LOC: US 08:22
PROVIDERS: ATTEND Surgery
DX: N60.12 Diffuse cystic mastopathy of left breast (principal); N60.42 Mammary duct ectasia of left breast
CPT/HCPCS: 19083; 77065; 88305; C1713; 19081; 76942

== ENCOUNTER 2019-04-28 18:31 | Emergency (ER) | payer BC, OTHER ==
[~2019-04-28] VITALS: Ht 165.1 cm; Wt 70.9 kg
[2019-04-28 19:35] VITALS: BP 146/90
[2019-04-28] MEDS ORDERED: PENI500T PO (20:59)
[2019-04-28] MEDS ORDERED: CHLO15MO2 SWSP (20:59)
[2019-04-28] MEDS ORDERED: NAPR-514 PO (20:59)
[2019-04-28] MEDS: HYDROcodone/APAP 5/325MG 1 TAB TABLET PO ONE (21:00)
--- NOTE | 2019-04-28 21:00 | PHYS DOC ---
Past Medical History Past Medical History: No Pertinent History, Hypertension Past Surgical History: Other Additional Past Surgical Histo: L breast biopsy Smoking Status: Never Smoker Alcohol Use: None Drug Use: None Adult General Chief Complaint Chief Complaint: DENTAL PROBLEM HPI HPI Patient is a 24 year old AA female who presents to the emergency department with complaints of left upper quadrant dental pain in gingival swelling that began today. Patient states that she noticed that her left cheek was also swollen this afternoon. She denies any fever, cough, nasal congestion, body aches, fatigue, nausea, vomiting, diarrhea, or abdominal pain. She currently rates her pain a 10 out of 10 on the pain scale, she denies any history of trauma to the affected area. Patient denies any alleviating factors. Review of Systems Review of Systems All other ROS is negative unless otherwise noted in HPI. Allergies Allergies Allergies Coded Allergies Type Severity Reaction Last Updated Verified No Known Drug Allergies 08/18/17 No Physical Exam Physical Exam See Above Constitutional: Well developed, well nourished, no acute distress, non-toxic appearance. [] HENT: Normocephalic, atraumatic, bilateral external ears normal, oropharynx moist, no oral exudates, nose normal; gingival edema and erythema noted lateral to tooth #13, no visible abscess, consistent with gingivitis tooth #13 tender to palpation [] Eyes: PERRLA, EOMI, conjunctiva normal, no discharge. [] Neck: Normal range of motion, no tenderness, supple, no stridor. [] Cardiovascular:Heart rate regular rhythm Lungs & Thorax: Respirations even and unlabored, no retractions, no respiratory distress Skin: Warm, dry, no erythema, no rash. [] Extremities: No cyanosis, ROM intact Neurologic: Alert and oriented X 3, no focal deficits noted. [] Psychologic: Affect normal, judgement normal, mood normal. [] Current Patient Data Vital Signs Vital Signs Date Time Temp Pulse Resp B/P (MAP) Pulse Ox O2 Delivery O2 Flow Rate FiO2 04/28/19 19:35 98.7 86 18 146/90 (108) 100 Room Air 98.7 EKG EKG [] Radiology/Procedures Radiology/Procedures [] Course & Med Decision Making Course & Med Decision Making Pertinent Labs and Imaging studies reviewed. (See chart for details) [] Dragon Disclaimer Dragon Disclaimer This electronic medical record was generated, in whole or in part, using a voice recognition dictation system. Departure Departure Impression: Primary Impression: Dentalgia Additional Impression: Acute gingivitis Disposition: 01 HOME, SELF-CARE Condition: STABLE Referrals: JEANETTE VERDUGO MD (PCP) Patient Instructions: Dental Pain, [id number], Gingivitis, [id number] Additional Instructions: Fill prescription(s) and use as directed. Follow up with dentist using the referral list provided. Return to the ER if symptoms worsen. Scripts Chlorhexidine Gluconate (PERIDEX) 15 Ml Mouthwash 15 ML SWSP BID for 7 Days, #473 ML 0 Refills [place] teeth before using to prevent staining. Swish for approximately 30 seconds before spitting. Prov: NOEL BRAR APRN 04/28/19 Naproxen (NAPROXEN) 500 Mg Tablet 1 TAB PO BID PRN for PAIN for 10 Days, #20 TAB 0 Refills Prov: NOEL BRAR APRN 04/28/19 Penicillin V Potassium (PENICILLIN V POTASSIUM) 500 Mg Tablet 1 TAB PO QID for 10 Days, #40 TAB 0 Refills Prov: NOEL BRAR APRN 04/28/19 Problem Qualifiers NOEL BRAR APRN Apr 28, 2019 21:00
== END 2019-04-28 21:05 | disposition home or self-care (01) ==
LOC: ER 18:31
DX: K05.00 Acute gingivitis, plaque induced (principal); K08.89 Other specified disorders of teeth and supporting structures; R10.12 Left upper quadrant pain; I10 Essential (primary) hypertension; Z98.890 Other specified postprocedural states
CPT/HCPCS: 99283

== ENCOUNTER 2019-05-26 07:17 | Emergency (ER) | payer BC ==
[~2019-05-26] VITALS: Ht 167.6 cm; Wt 150.0 kg
[~2019-05-26 07:17] MED LIST changes: +CHLO15MO2 SWSP; +NAPR-514 PO; +PENI500T PO
[2019-05-26 08:01] VITALS: BP 115/68
--- NOTE | 2019-05-26 08:08 | PHYS DOC ---
Past Medical History Past Medical History: No Pertinent History, Hypertension Past Surgical History: Other Additional Past Surgical Histo: L breast biopsy Smoking Status: Never Smoker Alcohol Use: None Drug Use: None Adult General Chief Complaint Chief Complaint: FLU SYMPTOM HPI HPI Patient is a 24 year old female patient who presents with flulike symptoms. Patient states that she began feeling sick last night. She has body aches, sore throat, right ear pain. No medication taken prior to arrival. No sick contacts. No recent travel outside the country or exposure to high risk patients. Review of Systems Review of Systems Negative except as stated in HPI Family History Family History e Allergies Allergies Allergies Coded Allergies Type Severity Reaction Last Updated Verified No Known Drug Allergies 08/18/17 No Physical Exam Physical Exam Constitutional: Well developed, well nourished, no acute distress, non-toxic appearance. [] HENT: Normocephalic, atraumatic, bilateral external ears normal, oropharynx moist, no oral exudates, nose normal. The right tympanic membrane is irritated without signs of overt infection. Eyes: PERRLA, EOMI, conjunctiva normal, no discharge. [] Neck: Normal range of motion, no tenderness, supple, no stridor. [No lymphadenopathy Cardiovascular:Heart rate regular rhythm, no murmur [] Lungs & Thorax: Bilateral breath sounds clear to auscultation [] Abdomen: Bowel sounds normal, soft, no tenderness, no masses, no pulsatile masses. [] Skin: Warm, dry, no erythema, no rash. [] Back: No tenderness, no CVA tenderness. [] Extremities: No tenderness, no cyanosis, no clubbing, ROM intact, no edema. [] Neurologic: Alert and oriented X 3, normal motor function, normal sensory function, no focal deficits noted. [] Psychologic: Affect normal, judgement normal, mood normal. [] Current Patient Data Vital Signs Vital Signs Date Time Temp Pulse Resp B/P (MAP) Pulse Ox O2 Delivery O2 Flow Rate FiO2 05/26/19 08:01 100.3 112 18 115/68 (84) 98 Room Air 100.3 Lab Values Laboratory Tests Test 05/26/19 08:20 05/26/19 08:25 Influenza Type A Antigen Negative (NEGATIVE) Influenza Type B Antigen Positive (NEGATIVE) Group A Streptococcus Rapid Negative (NEGATIVE) EKG EKG [] Radiology/Procedures Radiology/Procedures [] Course & Med Decision Making Course & Med Decision Making Pertinent Labs and Imaging studies reviewed. (See chart for details) Patient seen for flulike symptoms and sore throat. Will check for strep and flu. 0900: Influenza B positive. Will start on Tamiflu. [place] Disclaimer [place] Disclaimer This electronic medical record was generated, in whole or in part, using a voice recognition dictation system. Departure Departure Impression: Primary Impression: Influenza B Disposition: HOME, SELF-CARE Condition: STABLE Referrals: UNKNOWN PCP NAME (PCP) Patient Instructions: Influenza, Adult Additional Instructions: You may take ibuprofen and Tylenol for body aches, fever, chills Scripts Oseltamivir Phosphate (TAMIFLU) 75 Mg Capsule 1 CAP PO BID, #10 CAP Prov: CLAIRE HALL DO 05/26/19 CLAIRE HALL DO May 26, 2019 08:08
[2019-05-26 08:48] LABS: INFLUENZA A PATIENT NEGATIVE (NEGATIVE)
[2019-05-26 08:53] LABS: INFLUENZA B PATIENT POSITIVE (NEGATIVE)
[2019-05-26] MEDS ORDERED: OSEL75CA PO (09:02)
== END 2019-05-26 09:22 | disposition home or self-care (01) ==
LOC: ER 07:17
DX: J10.1 Influenza due to other identified influenza virus with other respiratory manifestations (principal); H92.01 Otalgia, right ear; I10 Essential (primary) hypertension; Z98.890 Other specified postprocedural states
CPT/HCPCS: 87070; 87804; 87880; 99283

== ENCOUNTER 2019-07-06 19:49 | Emergency (ER) | payer BC, OTHER ==
[~2019-07-06] VITALS: Ht 160 cm; Wt 68.1 kg
[~2019-07-06 19:49] MED LIST changes: +OSEL75CA PO
[2019-07-06 20:35] VITALS: BP 120/67
[2019-07-06 21:02] LABS: BILIRUBIN,URINE NEGATIVE (NEG); CLARITY,URINE CLOUDY; COLOR,URINE YELLOW; NITRITE,URINE NEGATIVE (NEG); PH,URINE 6.5 (<5.0-8.0); PROTEIN,URINE NEGATIVE (NEG-TRACE)
[2019-07-06 21:07] LABS: AMPHETAMINE/METHAMPHETAMINE NEG (NEG); BARBITURATES NEG (NEG); BENZODIAZEPINES NEG (NEG); CANNABINOIDS POS (NEG); COCAINE NEG (NEG); METHADONE NEG (NEG); OPIATES POS (NEG); PHENCYCLIDINE NEG (NEG)
[2019-07-06 21:08] LABS: BACTERIA,URINE FEW /HPF (0-FEW); RBC,URINE 0 /HPF (0-2); SQUAMOUS EPITHELIAL CELL,UR MANY /LPF
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
== END 2019-07-06 21:58 | disposition home or self-care (01) ==
LOC: ER 19:49
DX: O26.891 Other specified pregnancy related conditions, first trimester (principal); R10.30 Lower abdominal pain, unspecified; Z98.890 Other specified postprocedural states; Z3A.14 14 weeks gestation of pregnancy
CPT/HCPCS: 76805; 80307; 81001; 87086; 99284

== ENCOUNTER 2019-08-09 09:48 | Emergency (ER) | payer OTHER ==
[~2019-08-09] VITALS: Ht 167.6 cm; Wt 70.4 kg
[2019-08-09 10:38] LABS: BASO % 1 % (0-3); EOS # 0.1 x10^3/uL (0.0-0.7); EOS % 3 % (0-3); HEMOGLOBIN 12.6 g/dL (12.0-15.5); LYMPH # 1.2 x10^3/uL (1.0-4.8); LYMPH % 41 % (24-48); MEAN CORPUSCULAR HEMOGLOBIN 31 pg (25-35); MEAN CORPUSCULAR HGB CONC 34 g/dL (31-37); MEAN CORPUSCULAR VOLUME 90 fL (79-100); MONO # 0.3 x10^3/uL (0.0-1.1); MONO % 11 % (0-9); NEUT # 1.3 x10^3/uL (1.8-7.7); NEUT % 45 % (31-73); PLATELET COUNT 241 x10^3/uL (140-400); RED BLOOD COUNT 4.12 x10^6/uL (3.50-5.40); RED CELL DISTRIBUTION WIDTH 13.3 % (11.5-14.5); WHITE BLOOD COUNT 2.9 x10^3/uL (4.0-11.0)
[2019-08-09 10:39] LABS: CALCIUM 8.4 mg/dL (8.5-10.1); CREATININE 0.9 mg/dL (0.6-1.0); GFR 93.1; POTASSIUM 3.6 mmol/L (3.5-5.1)
[2019-08-09 10:44] LABS: ALBUMIN 3.2 g/dL (3.4-5.0); ALBUMIN/GLOBULIN RATIO 0.7 (1.0-1.7); TOTAL BILIRUBIN 0.3 mg/dL (0.2-1.0); TOTAL PROTEIN 7.8 g/dL (6.4-8.2)
[2019-08-09 10:51] LABS: BILIRUBIN,URINE NEGATIVE (NEG); CLARITY,URINE CLEAR; COLOR,URINE YELLOW; NITRITE,URINE NEGATIVE (NEG); PROTEIN,URINE NEGATIVE (NEG-TRACE)
[2019-08-09 11:29] LABS: BACTERIA,URINE 0 /HPF (0-FEW); RBC,URINE 0 /HPF (0-2); SQUAMOUS EPITHELIAL CELL,UR FEW /LPF; WBC,URINE 0 /HPF (0-4)
[2019-08-09 12:39] VITALS: BP 120/76
--- NOTE | 2019-08-09 12:50 | RAD ---
INDICATION: Pelvic pain COMPARISON: None. TECHNIQUE: Grayscale and color ultrasound images uterus and adnexa. FINDINGS: Uterus: 86 x 56 x 43 mm. Endometrial Stripe: 2 mm. Right Ovary: 26 x 17 x 18 mm. Left Ovary: 49 x 45 x 40 mm. 35 x 33 mm cyst Vascular flow identified to bilateral ovaries. IMPRESSION: * Left ovarian cyst. * Vascular flow seen to the ovaries. * Endometrial stripe is not thickened. Electronically signed by: Yonis Begum MD (08/09/2019 12:47 PM) [id number]
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
== END 2019-08-09 13:44 | disposition home or self-care (01) ==
LOC: ER 09:48
DX: N83.202 Unspecified ovarian cyst, left side (principal); I10 Essential (primary) hypertension
CPT/HCPCS: 36415; 76856; 80053; 81001; 81025; 85025; 99284-25

== ENCOUNTER 2019-12-12 13:06 | Emergency (ER) | payer BC, OTHER ==
[~2019-12-12] VITALS: Ht 167.6 cm; Wt 69.6 kg
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
[2019-12-12] MEDS ORDERED: IBUPROFEN 400 MG TABLET. PO ONE (14:30)
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
[2019-12-12 14:51] LABS: BARBITURATES NEG (NEG); BENZODIAZEPINES NEG (NEG); CANNABINOIDS POS (NEG); COCAINE NEG (NEG); METHADONE NEG (NEG); OPIATES POS (NEG); PHENCYCLIDINE NEG (NEG)
[2019-12-12 14:54] LABS: AMPHETAMINE/METHAMPHETAMINE NEG (NEG)
[2019-12-12] MEDS ORDERED: IBUP-1007 PO (15:48)
[2019-12-12 16:24] VITALS: BP 123/75
== END 2019-12-12 16:24 | disposition home or self-care (01) ==
LOC: ER 13:06
DX: S62.643A Nondisplaced fracture of proximal phalanx of left middle finger, initial encounter for closed fracture (principal); M79.642 Pain in left hand; M79.632 Pain in left forearm; R60.0 Localized edema; I10 Essential (primary) hypertension; Z98.890 Other specified postprocedural states; V49.88XA Car occupant (driver) (passenger) injured in other specified transport accidents, initial encounter; Y93.89 Activity, other specified; Y92.413 State road as the place of occurrence of the external cause; Y99.8 Other external cause status
CPT/HCPCS: 29130; 71111; 73090; 73130; 80307; 81025; 99284

== ENCOUNTER 2020-04-09 23:05 | Emergency (ER) | payer BC, OTHER ==
[~2020-04-09] VITALS: Ht 167.6 cm; Wt 68.2 kg
[~2020-04-09 23:05] MED LIST changes: +IBUP-1007 PO
[2020-04-09] MEDS ORDERED: IV NORMAL SALINE 1000ML BAG 1,000 ML IV SCH (23:45)
[2020-04-09] MEDS ORDERED: FAMOTIDINE 20 MG/2 ML VIAL IVP ONE (23:45)
[2020-04-09 23:47] LABS: BILIRUBIN,URINE NEGATIVE (NEG); CLARITY,URINE CLEAR; COLOR,URINE YELLOW; NITRITE,URINE NEGATIVE (NEG); PH,URINE 6.5 (<5.0-8.0); PROTEIN,URINE NEGATIVE (NEG-TRACE)
[2020-04-09 23:56] LABS: BACTERIA,URINE 0 /HPF (0-FEW); WBC,URINE 20-40 /HPF (0-4)
--- NOTE | 2020-04-10 00:07 | PHYS DOC ---
Past Medical History Past Medical History: No Pertinent History, Hypertension Past Surgical History: Other Additional Past Surgical Histo: L breast biopsy Smoking Status: Never Smoker Alcohol Use: None Drug Use: None Adult General Chief Complaint Chief Complaint: ABDOMINAL PAIN HPI HPI Patient is a 25 year old with PMH of HTN presents emergency department comp laint of new onset of flulike illness and then abdominal pain. Patient states for the last 2 weeks she is having daily episodes of sensation of nausea. States over the last 3 days she had 2 episodes of vomiting today before arriving she is attempting to eat and was unable to tolerate food. However patient also states that she was attempting to drink liquor and this made her nauseous. Patient also states that she has been having mild abdominal discomfort as well as sore throat, nasal congestion and mild intermittent nonproductive cough. Denies any chest pain or shortness of breath Review of Systems Review of Systems Constitutional: Denies fever or chills [] Eyes: Denies change in visual acuity, redness, or eye pain [] HENT: Denies nasal congestion or sore throat [] Respiratory: Denies cough or shortness of breath [] Cardiovascular: No additional information not addressed in HPI [] GI: Denies abdominal pain, nausea, vomiting, bloody stools or diarrhea [] : Denies dysuria or hematuria [] Musculoskeletal: Denies back pain or joint pain [] Integument: Denies rash or skin lesions [] Neurologic: Denies headache, focal weakness or sensory changes [] Endocrine: Denies polyuria or polydipsia [] All other systems were reviewed and found to be within normal limits, except as documented in this note. Current Medications Current Medications Current Medications Medications (Trade) Dose Ordered Sig/Mishel Start Time Stop Time Status Last Admin Dose Admin Acetaminophen (Tylenol) 1,000 mg 1X ONCE 04/10/20 00:15 04/10/20 00:16 DC 04/10/20 00:31 1,000 MG Famotidine (Pepcid Vial) 20 mg 1X ONCE 04/09/20 23:45 04/09/20 23:46 DC 04/10/20 00:05 20 MG Sodium Chloride 1,000 ml @ 1,000 mls/hr Q1H 04/09/20 23:45 04/10/20 00:44 DC 04/10/20 00:04 1,000 MLS/HR Allergies Allergies Allergies Coded Allergies Type Severity Reaction Last Updated Verified No Known Drug Allergies 08/18/17 No Physical Exam Physical Exam Constitutional: Well developed, well nourished, no acute distress, non-toxic appearance. [] HENT: Normocephalic, atraumatic, bilateral external ears normal, oropharynx moist, no oral exudates, nose normal. [] Eyes: PERRLA, EOMI, conjunctiva normal, no discharge. [] Neck: Normal range of motion, no tenderness, supple, no stridor. [] Cardiovascular:Heart rate regular rhythm, no murmur [] Lungs & Thorax: Bilateral breath sounds clear to auscultation [] Abdomen: Bowel sounds normal, soft, no tenderness, no masses, no pulsatile masses. [] Skin: Warm, dry, no erythema, no rash. [] Back: No tenderness, no CVA tenderness. [] Extremities: No tenderness, no cyanosis, no clubbing, ROM intact, no edema. [] Neurologic: Alert and oriented X 3, normal motor function, normal sensory function, no focal deficits noted. [] Psychologic: Affect normal, judgement normal, mood normal. [] Current Patient Data Vital Signs Vital Signs Date Time Temp Pulse Resp B/P (MAP) Pulse Ox O2 Delivery O2 Flow Rate FiO2 04/10/20 00:45 71 18 108/76 (87) 100 Room Air 04/09/20 23:16 98.6 98.6 Lab Values Laboratory Tests Test 04/09/20 23:27 04/09/20 23:31 04/09/20 23:59 Urine Collection Type Unknown Urine Color Yellow Urine Clarity Clear Urine pH 6.5 (<5.0-8.0) Urine Specific Powell 1.025 (1.000-1.030) Urine Protein Negative mg/dL (NEG-TRACE) Urine Glucose (UA) Negative mg/dL (NEG) Urine Ketones (Stick) Negative mg/dL (NEG) Urine Blood Small (NEG) Urine Nitrite Negative (NEG) Urine Bilirubin Negative (NEG) Urine Urobilinogen Dipstick 1.0 mg/dL (0.2 mg/dL) Urine Leukocyte Esterase Moderate (NEG) Urine RBC 1-2 /HPF (0-2) Urine WBC 20-40 /HPF (0-4) Urine Squamous Epithelial Cells Few /LPF Urine Bacteria 0 /HPF (0-FEW) Urine Mucus Mod /LPF POC Urine HCG, Qualitative Hcg negative (Negative) White Blood Count 3.5 x10^3/uL (4.0-11.0) L Red Blood Count 3.81 x10^6/uL (3.50-5.40) Hemoglobin 11.7 g/dL (12.0-15.5) L Hematocrit 34.4 % (36.0-47.0) L Mean Corpuscular Volume 90 fL (79-100) Mean Corpuscular Hemoglobin 31 pg (25-35) Mean Corpuscular Hemoglobin Concent 34 g/dL (31-37) Red Cell Distribution Width 12.4 % (11.5-14.5) Platelet Count 235 x10^3/uL (140-400) Neutrophils (%) (Auto) 50 % (31-73) Lymphocytes (%) (Auto) 38 % (24-48) Monocytes (%) (Auto) 8 % (0-9) Eosinophils (%) (Auto) 3 % (0-3) Basophils (%) (Auto) 0 % (0-3) Neutrophils # (Auto) 1.8 x10^3/uL (1.8-7.7) Lymphocytes # (Auto) 1.4 x10^3/uL (1.0-4.8) Monocytes # (Auto) 0.3 x10^3/uL (0.0-1.1) Eosinophils # (Auto) 0.1 x10^3/uL (0.0-0.7) Basophils # (Auto) 0.0 x10^3/uL (0.0-0.2) Sodium Level 141 mmol/L (136-145) Potassium Level 3.4 mmol/L (3.5-5.1) L Chloride Level 106 mmol/L (98-107) Carbon Dioxide Level 28 mmol/L (21-32) Anion Gap 7 (6-14) Blood Urea Nitrogen 15 mg/dL (7-20) Creatinine 0.8 mg/dL (0.6-1.0) Estimated GFR (Cockcroft-Gault) 105.8 BUN/Creatinine Ratio 19 (6-20) Glucose Level 82 mg/dL (70-99) Calcium Level 8.6 mg/dL (8.5-10.1) Total Bilirubin 0.3 mg/dL (0.2-1.0) Aspartate Amino Transferase (AST) 18 U/L (15-37) Alanine Aminotransferase (ALT) 24 U/L (14-59) Alkaline Phosphatase 69 U/L (46-116) Total Protein 8.0 g/dL (6.4-8.2) Albumin 3.4 g/dL (3.4-5.0) Albumin/Globulin Ratio 0.7 (1.0-1.7) L Lipase 93 U/L (73-393) Influenza Type A Antigen Negative (NEGATIVE) Influenza Type B Antigen Negative (NEGATIVE) Laboratory Tests 04/09/20 23:59 Laboratory Tests 04/09/20 23:59 EKG EKG [] Radiology/Procedures Radiology/Procedures [] Course & Med Decision Making Course & Med Decision Making Pertinent Labs and Imaging studies reviewed. (See chart for details) 25-year-old female presenting with nonspecific flulike illness going on for approximately 2 weeks with nausea vomiting. At this time will obtain basic labs to make sure there is no significant dehydration or ongoing intra-abdominal infection and treat symptomatically. Labs returned unremarkable. Patient symptoms improved. At this time will discharge home with symptomatic relief. I spoken with the patient and her caregivers. I explained the patient's condition, diagnoses and treatment plan based on the information available to me at this time. I have answered the patient and her caregiver's questions and addressed any concerns. The patient and her caregivers have a good underst anding of patient's diagnosis, condition and treatment plan as can be expected at this point. Vital signs have been stable. Patient's condition is stable and appropriate for discharge from the emergency department. Patient will pursue further outpatient evaluation with primary care physician or other designated or consulting physician as outlined in the discharge instructions. The patient and/or caregivers are agreeable to this plan of care and follow-up instructions have been explained in detail. The patient and/or caregivers have received these instructions in written form and have expressed an understanding of the discharge instructions. The patient and/or caregivers are aware that any significant change of condition or worsening of symptoms should prompt immediate return to this or the closest emergency department or call to 911. [place] Disclaimer Dragon Disclaimer This electronic medical record was generated, in whole or in part, using a voice recognition dictation system. Departure Departure Impression: Primary Impression: Viral syndrome Disposition: 01 DC HOME SELF CARE/HOMELESS Condition: GOOD Referrals: NO PCP (PCP) Patient Instructions: Nausea and Vomiting Additional Instructions: EMERGENCY DEPARTMENT GENERAL DISCHARGE INSTRUCTIONS Thank you for coming to [facility] Emergency Department (ED) today and trusting us with you care. We trust that you had a positive experience in our Emergency Department. If you wish to speak to the department management, you may call the Director at [phone]. YOUR FOLLOW UP INSTRUCTIONS ARE FOLLOWS: 1. Do you have a private Doctor? If you do not have a private doctor, please ask for a resource list of physicians or clinics that may be able to assist you with follow up care. 2. The Emergency Physicain has interpreted your x-rays. The X-Ray specialist will also review them. If there is a change in the findings, you will be notified in 48 hours when at all possible. 3. A lab test or culture has been done, your results will be reviewed and you will be notified if you need a change in treatment. ADDITIONAL INSTRUCTIONS AND INFORMATION: 1. Your care today has been supervised by a physician who is specially trained in emergency care. Many problems require more than one evaluation for a complete diagnosis and treatment. We recommend that you schedule your follow up appointment as recommended to ensure complete treatment of you illness or injury. If you are unable to obtain follow up care and continue to have a problem, or if your condition worsens, we recommend that you return to the ED. 2. We are not able to safely determine your condition over the phone nor are we able to give sound medical advice over the phone. For these safety reasons, if you call for medical advice we will ask you to come to the ED for further evaluation. 3. If you have any questions regarding these discharge instructions please call the ED at [phone]. SAFETY INFORMATION: In the interest of safety, wellness, and injury prevention; we encourage you to wear your sealbelt, if you smoke; quite smoking, and we encourage family to use a protective helmet for bicycling and other sporting events that present an increased risk for head injury. IF YOUR SYMPTOMS WORSEN OR NEW SYMPTOMS DEVELOP, OR YOU HAVE CONCERNS ABOUT YOUR CONDITION; OR IF YOUR CONDITION WORSENS WHILE YOU ARE WAITING FOR YOUR FOLLOW UP APPOINTMENT; EITHER CONTACT YOUR PRIMARY CARE DOCTOR, THE PHYSICIAN WHOSE NAME AND NUMBER YOU WERE GIVEN, OR RETURN TO THE ED IMMEDIATELY. Scripts Ondansetron Hcl (ZOFRAN) 4 Mg Tablet 1 TAB PO PRN Q6-8HRS for nausea, #12 TAB Prov: ANTONIO SALCEDO MD 04/10/20 ANTONIO SALCEDO MD Apr 10, 2020 00:06
[2020-04-10 00:15] LABS: BASO % 0 % (0-3); EOS # 0.1 x10^3/uL (0.0-0.7); EOS % 3 % (0-3); HEMATOCRIT 34.4 % (36.0-47.0); HEMOGLOBIN 11.7 g/dL (12.0-15.5); LYMPH # 1.4 x10^3/uL (1.0-4.8); LYMPH % 38 % (24-48); MEAN CORPUSCULAR HEMOGLOBIN 31 pg (25-35); MEAN CORPUSCULAR HGB CONC 34 g/dL (31-37); MEAN CORPUSCULAR VOLUME 90 fL (79-100); MONO # 0.3 x10^3/uL (0.0-1.1); MONO % 8 % (0-9); NEUT # 1.8 x10^3/uL (1.8-7.7); NEUT % 50 % (31-73); PLATELET COUNT 235 x10^3/uL (140-400); RED BLOOD COUNT 3.81 x10^6/uL (3.50-5.40); RED CELL DISTRIBUTION WIDTH 12.4 % (11.5-14.5); WHITE BLOOD COUNT 3.5 x10^3/uL (4.0-11.0)
[2020-04-10] MEDS ORDERED: ACETAMINOPHEN 500 MG TABLET PO ONE (00:15)
[2020-04-10 00:27] LABS: ALBUMIN 3.4 g/dL (3.4-5.0); ALBUMIN/GLOBULIN RATIO 0.7 (1.0-1.7); CALCIUM 8.6 mg/dL (8.5-10.1); CREATININE 0.8 mg/dL (0.6-1.0); GFR 105.8; POTASSIUM 3.4 mmol/L (3.5-5.1); TOTAL BILIRUBIN 0.3 mg/dL (0.2-1.0)
[2020-04-10 00:34] LABS: INFLUENZA A PATIENT NEGATIVE (NEGATIVE)
[2020-04-10 00:35] LABS: INFLUENZA B PATIENT NEGATIVE (NEGATIVE)
[2020-04-10] MEDS ORDERED: ONDA4TAB7 PO (01:21)
[2020-04-10] MEDS ORDERED: NITR100C62 PO (01:39)
[2020-04-10 01:45] VITALS: BP 102/63
--- NOTE | 2020-04-10 17:14 | NUR ---
IP: Informed pt of positive COVID test and the need to quarantine for 10 days from onset of symptoms. Pt verbalized understanding.
== END 2020-04-10 01:51 | disposition home or self-care (01) ==
LOC: ER 23:05
DX: U07.1 COVID-19 (principal); B34.9 Viral infection, unspecified; R11.2 Nausea with vomiting, unspecified; R20.2 Paresthesia of skin; R10.9 Unspecified abdominal pain; I10 Essential (primary) hypertension; Z98.890 Other specified postprocedural states
CPT/HCPCS: 36415; 80053; 81001; 81025; 83690; 85025; 87804; 96361; 96374; 99285; C9803; J3490; J7030; U0003

== ENCOUNTER 2020-05-24 21:46 | Emergency (ER) | payer BC, OTHER ==
[~2020-05-24] VITALS: Ht 167.6 cm; Wt 70.9 kg
[~2020-05-24 21:46] MED LIST changes: +NITR100C62 PO; +ONDA4TAB7 PO
--- NOTE | 2020-05-24 22:02 | PHYS DOC ---
Past Medical History Past Medical History: No Pertinent History, Hypertension Past Surgical History: Other Additional Past Surgical Histo: L breast biopsy Smoking Status: Never Smoker Alcohol Use: None Drug Use: None General Adult EDM: Chief Complaint: CHEST PAIN HPI: HPI: Patient is a 25 year old female with a history of hypertension, pericarditis, who presents to the ED today complaining of substernal 8 out of 10 chest pain nonradiating, symptoms began 3 days ago. Patient states symptoms are worse on deep breaths. Patient denies anything specifically relieving the pain. Denies any fever coughing or congestion. Reports she had COVID-19 in March 2019 Review of Systems: Review of Systems: Constitutional: Denies fever or chills. [] Eyes: Denies change in visual acuity. [] HENT: Denies nasal congestion or sore throat. [] Respiratory: Denies cough or shortness of breath. [] Cardiovascular: Reports substernal chest pain GI: Denies abdominal pain, nausea, vomiting, bloody stools or diarrhea. [] : Denies dysuria. [] Musculoskeletal: Denies back pain or joint pain. [] Integument: Denies rash. [] Neurologic: Denies headache, focal weakness or sensory changes. [] Psychiatric: Denies depression or anxiety. [] Heart Score: C/O Chest Pain: N/A HEART Score for Chest Pain: HEART Score for Chest Pain Response (Comments) Value History Slighlty/Non-Suspicious 0 ECG Normal 0 Age < 45 0 Risk Factors 1 or 2 Risk Factors 1 Troponin < Normal Limit 0 Total 1 Risk Factors: Risk Factors: DM, Current or recent (<one month) smoker, HTN, HLP, family history of CAD, obesity. Risk Scores: Score 0 - 3: 2.5% MACE over next 6 weeks - Discharge Home Score 4 - 6: 20.3% MACE over next 6 weeks - Admit for Clinical Observation Score 7 - 10: 72.7% MACE over next 6 weeks - Early Invasive Strategies Allergies: Allergies: Allergies Coded Allergies Type Severity Reaction Last Updated Verified No Known Drug Allergies 08/18/17 No Physical Exam: PE: Constitutional: Well developed, well nourished, no acute distress, non-toxic appearance. [] HENT: Normocephalic, atraumatic, bilateral external ears normal, oropharynx moist, no oral exudates, nose normal. [] Eyes: PERRLA, EOMI, conjunctiva normal, no discharge. [] Neck: Normal range of motion, no tenderness, supple, no stridor. [] Cardiovascular:Heart rate regular rhythm, no murmur [] Lungs & Thorax: Bilateral breath sounds clear to auscultation [] Abdomen: Bowel sounds normal, soft, no tenderness, no masses, no pulsatile masses. [] Skin: Warm, dry, no erythema, no rash. [] Back: No tenderness, no CVA tenderness. [] Extremities: No tenderness, no cyanosis, no clubbing, ROM intact, no edema. [] Neurologic: Alert and oriented X 3, normal motor function, normal sensory function, no focal deficits noted. [] Psychologic: Affect normal, judgement normal, mood normal. [] EKG: EK interpreted by Dr. Hook sinus rhythm, inverted T waves on V1, V2, V3, no STEMI, these are not new changes, they are noted in the EKG done January 2018 [] Radiology/Procedures: Radiology/Procedures: []PROCEDURE: PORTABLE CHEST 1V XR CHEST 1V 05/24/2020 10:26 PM INDICATION: Chest pain COMPARISON: 02/10/2018 TECHNIQUE: Portable frontal view of the chest is provided. FINDINGS: The cardiomediastinal silhouette is within normal limits. Lungs are clear. There are no significant pleural effusions. There is no pulmonary vascular congestion. No pneumothorax. No suspicious osseous abnormality. IMPRESSION: There is no acute cardiopulmonary process. Electronically signed by: Myra Castillo MD (05/24/2020 10:29 PM) [facility] DICTATED and SIGNED BY: MYRA CASTILLO MD DATE: 05/24/20 [id number] 0 Course & Med Decision Making: Course & Med Decision Making Pertinent Labs and Imaging studies reviewed. (See chart for details) This is a 25-year-old female patient presenting to the ED today with chest pain that began 3 days ago. Negative urine hCG, troponin is normal, EKG is negative for any acute findings, CBC with no acute findings, CMP with potassium of 3.2, patient was given 40 mEq of oral potassium. UA negative for infection, noted for marijuana use. Patient feeling better. Discharge to home. Provided return precautions. Dragon Disclaimer: Dragon Disclaimer: This electronic medical record was generated, in whole or in part, using a voice recognition dictation system. Departure Departure Impression: Primary Impression: Chest pain Qualified Codes: R07.9 - Chest pain, unspecified Additional Impression: Hypokalemia Disposition: 01 DC HOME SELF CARE/HOMELESS Condition: STABLE Referrals: NO PCP (PCP) IRINA HERCULES MD follow up in 1 week Patient Instructions: Chest Pain (Nonspecific), Hypokalemia-Brief Additional Instructions: You were evaluated in the emergency room for chest pain, your cardiac work-up is negative. You can take [id number] pain relievers as needed. Follow-up with your primary care doctor as well as the provided narrative writer. NICOLE IZQUIERDO APRN May 24, 2020 22:02
[2020-05-24 22:12] LABS: BASO % 1 % (0-3); EOS # 0.1 x10^3/uL (0.0-0.7); EOS % 2 % (0-3); HEMOGLOBIN 12.5 g/dL (12.0-15.5); LYMPH # 1.5 x10^3/uL (1.0-4.8); LYMPH % 37 % (24-48); MEAN CORPUSCULAR HEMOGLOBIN 31 pg (25-35); MEAN CORPUSCULAR HGB CONC 35 g/dL (31-37); MEAN CORPUSCULAR VOLUME 89 fL (79-100); MONO # 0.4 x10^3/uL (0.0-1.1); MONO % 10 % (0-9); NEUT % 50 % (31-73); PLATELET COUNT 231 x10^3/uL (140-400); RED BLOOD COUNT 4.02 x10^6/uL (3.50-5.40); RED CELL DISTRIBUTION WIDTH 12.8 % (11.5-14.5)
[2020-05-24] MEDS ORDERED: MORPHINE SULFATE 2 MG/ML VIAL. IV/SQ PRN (22:15)
[2020-05-24 22:17] LABS: BARBITURATES NEG (NEG); BENZODIAZEPINES NEG (NEG); CANNABINOIDS POS (NEG); COCAINE NEG (NEG); METHADONE NEG (NEG); OPIATES NEG (NEG); PHENCYCLIDINE NEG (NEG)
[2020-05-24 22:21] LABS: AMPHETAMINE/METHAMPHETAMINE NEG (NEG)
[2020-05-24 22:27] LABS: CALCIUM 8.6 mg/dL (8.5-10.1); GFR 81.7; POTASSIUM 3.2 mmol/L (3.5-5.1)
[2020-05-24] MEDS ORDERED: ASPIRIN 325 MG TABLET PO ONE (22:30)
--- NOTE | 2020-05-24 22:31 | RAD ---
XR CHEST 1V 05/24/2020 10:26 PM INDICATION: Chest pain COMPARISON: 02/10/2018 TECHNIQUE: Portable frontal view of the chest is provided. FINDINGS: The cardiomediastinal silhouette is within normal limits. Lungs are clear. There are no significant pleural effusions. There is no pulmonary vascular congestion. No pneumothora x. No suspicious osseous abnormality. IMPRESSION: There is no acute cardiopulmonary process. Electronically signed by: Viktoriya Casiano MD (05/24/2020 10:29 PM) [facility]
--- NOTE | 2020-05-24 22:31 | EKG ---
[facility] [address] [place] [address] Test Date: 2020-05-24 Test Time: 21:57:39 Pat Name: CAMPBELL FIELDS Department: Room: Gender: F Change House Attendant: : 1995 Requested By: NICOLE IZQUIERDO Order Number: [id number] Reading MD: Measurements Intervals [place] Rate: 83 P: 0 NC: 144 QRS: 44 QRSD: 78 T: -18 QT: 340 QTc: 400 Interpretive Statements SINUS RHYTHM T ABNORMALITY IN ANTERIOR LEADS ABNORMAL ECG RI6.02 No previous ECG available for comparison
[2020-05-24 22:41] LABS: ALBUMIN 3.6 g/dL (3.4-5.0); ALBUMIN/GLOBULIN RATIO 0.7 (1.0-1.7); MAGNESIUM 2.1 mg/dL (1.8-2.4); TOTAL BILIRUBIN 0.3 mg/dL (0.2-1.0); TOTAL PROTEIN 8.5 g/dL (6.4-8.2)
[2020-05-24] MEDS ORDERED: POTASSIUM CHLORIDE 20 MEQ TABLET.ER. PO ONE (23:00)
[2020-05-24 23:38] VITALS: BP 107/67
== END 2020-05-24 23:40 | disposition home or self-care (01) ==
LOC: ER 21:46
DX: R07.89 Other chest pain (principal); E87.6 Hypokalemia; I10 Essential (primary) hypertension; Z98.890 Other specified postprocedural states
CPT/HCPCS: 36415; 71045; 80053; 80307; 81025; 83735; 83880; 84443; 84484; 85025; 93005; 96374; 99285; J2270

== ENCOUNTER 2020-12-01 00:21 | Emergency (ER) | payer BC, OTHER ==
[~2020-12-01] VITALS: Ht 165.1 cm; Wt 67.2 kg
[2020-12-01 00:40] VITALS: BP 121/78
[2020-12-01 00:54] LABS: BILIRUBIN,URINE NEGATIVE (NEG); CLARITY,URINE CLOUDY; COLOR,URINE YELLOW; NITRITE,URINE NEGATIVE (NEG); PH,URINE 6.5 (<5.0-8.0); PROTEIN,URINE NEGATIVE (NEG-TRACE); UROBILINOGEN,URINE 0.2 mg/dL (0.2 mg/dL)
[2020-12-01 01:00] LABS: WBC,URINE 20-40 /HPF (0-4)
[2020-12-01 01:01] LABS: BACTERIA,URINE MODERATE /HPF (0-FEW); RBC,URINE OCC /HPF (0-2)
--- NOTE | 2020-12-01 01:59 | PHYS DOC ---
Past Medical History Past Medical History: Hypertension, Other Additional Past Medical Histor: Pericarditis Past Surgical History: Other Additional Past Surgical Histo: L breast biopsy and finger surgery Smoking Status: Current Every Day Smoker Alcohol Use: Rarely Drug Use: None General Adult EDM: Chief Complaint: VAGINAL BLEEDING HPI: HPI: Patient is a 25 year old female who is a1 who states she is 7 weeks presents with the chief complaint of vaginal spotting and pelvic pain. Patient states pain is 8/10. Spotting is with wiping. Onset of symptoms tonight. Review of Systems: Review of Systems: Review of systems: Constitutional symptoms- No fever, no chills. Eyes- No Discharge, No Visual Loss Respiratory symptoms- No shortness of breath, No wheezing, No Dyspnea on Exertion Cardiovascular Systems; No chest pain, No Palpitations, No syncope Gastrointestinal symptoms: NO abdominal pain, no nausea, no vomiting or diarrhea. Genitourinary symptoms: No dysuria. Positive positive spotting positive pelvic discomfort Musculoskeletal symptoms: No back pain No extremity pain. NEUROLOGICAL Symptoms: No headache, no generalized weakness; No focal Weakness Skin: No rash. Heart Score: C/O Chest Pain: N/A Risk Factors: Risk Factors: DM, Current or recent (<one month) smoker, HTN, HLP, family history of CAD, obesity. Risk Scores: Score 0 - 3: 2.5% MACE over next 6 weeks - Discharge Home Score 4 - 6: 20.3% MACE over next 6 weeks - Admit for Clinical Observation Score 7 - 10: 72.7% MACE over next 6 weeks - Early Invasive Strategies Allergies: Allergies: Allergies Coded Allergies Type Severity Reaction Last Updated Verified No Known Drug Allergies 08/18/17 No Physical Exam: PE: Constitutional: Well developed, well nourished, no acute distress, non-toxic appearance. [] HENT: Normocephalic, atraumatic, bilateral external ears normal, oropharynx moist, no oral exudates, nose normal. [] Eyes: PERRLA, EOMI, conjunctiva normal, no discharge. [] Neck: Normal range of motion, no tenderness, supple, no stridor. [] Cardiovascular:Heart rate regular rhythm, no murmur [] Lungs & Thorax: Bilateral breath sounds clear to auscultation [] Abdomen: Bowel sounds normal, soft, no tenderness, no masses, no pulsatile masses. [] Skin: Warm, dry, no erythema, no rash. [] Back: No tenderness, no CVA tenderness. [] Extremities: No tenderness, no cyanosis, no clubbing, ROM intact, no edema. [] Neurologic: Alert and oriented X 3, normal motor function, normal sensory function, no focal deficits noted. [] Psychologic: Affect normal, judgement normal, mood normal. [] Current Patient Data: Labs: Laboratory Tests Test 12/01/20 00:45 12/01/20 00:50 Urine Collection Type Void Urine Color Yellow Urine Clarity Cloudy Urine pH 6.5 (<5.0-8.0) Urine Specific [place] 1.020 (1.000-1.030) Urine Protein Negative mg/dL (NEG-TRACE) Urine Glucose (UA) Negative mg/dL (NEG) Urine Ketones (Stick) Negative mg/dL (NEG) Urine Blood Negative (NEG) Urine Nitrite Negative (NEG) Urine Bilirubin Negative (NEG) Urine Urobilinogen Dipstick 0.2 mg/dL (0.2 mg/dL) Urine Leukocyte Esterase Moderate (NEG) Urine RBC Occ /HPF (0-2) Urine WBC 20-40 /HPF (0-4) Urine Squamous Epithelial Cells Mod /LPF Urine Bacteria Moderate /HPF (0-FEW) Urine Mucus Marked /LPF POC Urine HCG, Qualitative Hcg positive (Negative) EKG: EKG: [] Radiology/Procedures: Radiology/Procedures: [] Impression: EXAMINATION: Transabdominal pelvic ultrasound INDICATION: Pelvic pain, spotting spotting 7-8 weeks COMPARISONS: Pelvic ultrasound from 07/06/2019 TECHNIQUE: Transabdominal and endovaginal ultrasound evaluation of the pelvis was performed. FINDINGS: MENSTRUAL STATUS: Last menstrual period from 10/23/2020 BETA-HCG: Nonspecified UTERUS: Uterus is normal in size and morphology measuring up to 8.2 cm in length. Endometrium is thickened up to 1.7 cm. There is no gestational sac, pole or yolk sac visualized. RIGHT OVARY/ADNEXA: The right ovary measures 3.2 x 2.7 x 1.4 cm. Ovary is normal in size and morphology with normal low resistance vascularity. LEFT OVARY/ADNEXA: The left ovary measures 2.7 x 3.1 x 1.5 cm. Ovary is normal in size and morphology with normal low resistance vascularity FLUID: No significant fluid. IMPRESSION 1. Uterus and ovaries are within normal limits. No evidence of intra or extrauterine . Electronically signed by: Dean Mike DO (12/01/2020 3:22 AM) [facility] Course & Med Decision Making: Course & Med Decision Making Pertinent Labs and Imaging studies reviewed. (See chart for details) [] Patient evaluated for chief complaint. Work-up consisted of laboratory analysis and radiologic imaging. Results reviewed and discussed with patient. Patient's urine test positive urine consistent with urinary tract infection. hCG 511. Ultrasound performed no intrauterine IUP. Patient prescribed Keflex referred to [employer] [place] Disclaimer: [place] Disclaimer: This electronic medical record was generated, in whole or in part, using a voice recognition dictation system. Departure Departure Impression: Primary Impression: Urinary tract infection Additional Impression: Miscarriage Disposition: 01 HOME / SELF CARE / HOMELESS Condition: STABLE Referrals: NARENDRA GUTIERRES MD Patient Instructions: Miscarriage, Urinary Tract Infection Scripts Cephalexin (KEFLEX) 500 Mg Capsule 1 CAP PO BID, #20 CAP Prov: NICKIE PANDA DO 12/01/20 NICKIE PANDA DO Dec 01, 2020 01:59
--- NOTE | 2020-12-01 03:24 | RAD ---
EXAMINATION: Transabdominal pelvic ultrasound INDICATION: Pelvic pain, spotting spotting 7-8 weeks COMPARISONS: Pelvic ultrasound from 07/06/2019 TECHNIQUE: Transabdominal and endovaginal ultrasound evaluation of the pelvis was performed. FINDINGS: MENSTRUAL STATUS: Last menstrual period from 10/23/2020 BETA-HCG: Nonspecified UTERUS: Uterus is normal in size and morphology measuring up to 8.2 cm in length. Endometrium is thickened up to 1.7 cm. There is no gestational sac, pole or yolk sac visualized. RIGHT OVARY/ADNEXA: The right ovary measures 3.2 x 2.7 x 1.4 cm. Ovary is normal in size and morphology with normal low r esistance vascularity. LEFT OVARY/ADNEXA: The left ovary measures 2.7 x 3.1 x 1.5 cm. Ovary is normal in size and morphology with normal low re sistance vascularity FLUID: No significant fluid. IMPRESSION 1. Uterus and ovaries are within normal limits. No evidence of intra or extrauterine . Electronically signed by: Dean Mike DO (12/01/2020 3:22 AM) [facility]
[2020-12-01] MEDS ORDERED: CEPH500C PO (03:32)
== END 2020-12-01 03:53 | disposition home or self-care (01) ==
LOC: ER 00:21
DX: O03.9 Complete or unspecified spontaneous abortion without complication (principal); O23.41 Unspecified infection of urinary tract in pregnancy, first trimester; O16.1 Unspecified maternal hypertension, first trimester; O99.331 Smoking (tobacco) complicating pregnancy, first trimester; Z3A.01 Less than 8 weeks gestation of pregnancy
CPT/HCPCS: 36415; 76801; 81001; 81025; 84702; 86900; 86901; 87077; 87086; 87186; 99284